=== PATIENT | male | born 1960 | race Caucasian/White ===

== ENCOUNTER 2018-07-01 07:25 | Emergency (ER) | payer BC ==
[2018-07-01 07:36] VITALS: BP 186/97
--- NOTE | 2018-07-01 07:54 | UC ---
Abdominal Pain Male HPI - HPI Summary HPI Summary: The patient is a 58-year-old male with the onset of right flank pain about 4 AM. Pain is been waxing and waning. At its worst it was a 7 out of 10. It currently is 3-4 out of 10. He had some diaphoresis when the pain was at its worst. Eyes any nausea or vomiting or diarrhea. He denies any fever or chills. He has never had any history of kidney stones. He denies any UTI symptoms. He denies any chest pain or shortness of breath. - History of Current Complaint Chief Complaint: UCAbdominalPain Stated Complaint: ABD PAIN Time Seen by Provider: 07/01/18 07:43 Hx Obtained From: Patient Onset/Duration: Sudden Onset, Lasting Hours Timing: Constant Severity Initially: Moderate Severity Currently: Mild Pain Intensity: 4 Pain Scale Used: 0-10 Numeric Location: Other - right flank Radiates: No Aggravating Factor(s): Nothing Alleviating Factor(s): Nothing Associated Signs And Symptoms: Positive: Diaphoresis. 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 - Family History Known Family History: Positive: Hypertension - Social History Alcohol Use: None Substance Use Type: None Smoking Status (MU): Current Every Day Smoker Amount Used/How Often: 1/2 ppd Household Exposure Type: Cigarettes Review of Systems All Other Systems Reviewed And Are Negative: Yes Constitutional: Positive: Negative Skin: Positive: Negative Eyes: Positive: Negative ENT: Positive: Negative Respiratory: Positive: Negative Cardiovascular: Positive: Negative Gastrointestinal: Positive: Abdominal Pain - Right flank Genitourinary: Positive: Negative Motor: Positive: Negative Neurovascular: Positive: Negative Musculoskeletal: Positive: Negative Neurological: Positive: Negative Psychological: Positive: Negative Physical Exam Triage Information Reviewed: Yes Appearance: Well-Appearing, No Pain Distress, Well-Nourished Vital Signs: Initial Vital Signs Temp 96.8 F 07/01/18 07:30 Pulse 77 07/01/18 07:30 Resp 18 07/01/18 07:30 BP 186/97 07/01/18 07:30 Pulse Ox 96 07/01/18 07:30 Vital Signs Reviewed: Yes Eyes: Positive: Conjunctiva Clear ENT: Positive: Hearing grossly normal. Negative: Nasal congestion, Nasal drainage, Trismus, Muffled voice, Hoarse voice Neck: Positive: Supple, Nontender Respiratory: Positive: Lungs clear, Normal breath sounds, No respiratory distress, No accessory muscle use Cardiovascular: Positive: RRR, No Murmur. Negative: Tachycardia, Bradycardia Abdomen Description: Positive: Nontender, No Organomegaly, Soft, CVA Tenderness (R) - mild. Negative: Bruit, Distended, Guarding, Hernia @, Hepatomegaly, McBurney's Point Tenderness, Peritoneal Signs, Pulsatile Mass, Splenomegaly Bowel Sounds: Positive: Present Musculoskeletal: Positive: ROM Intact, No Edema Neurological: Positive: Alert Psychological Exam: Normal Skin Exam: Normal Diagnostics - Radiology No standard instances Radiology Interpretation Completed By: Radiologist Summary of Radiographic Findings: CT abd/pelvis-1. PUNCTATE CALCULUS OF THE RIGHT UVJ WITHOUT HYDRONEPHROSIS. 2. 3.4 CM INFRARENAL ABDOMINAL AORTIC ANEURYSM. 3. ATHEROSCLEROSIS. 4. LEFT ADRENAL NODULE, MOST CONSISTENT WITH AN ADRENAL ADENOMA. 5. FAT-CONTAINING UMBILICAL HERNIAS BILATERALL Abd Pain Male Course/Dx - Differential Dx/Clinical Impression Provider Diagnosis: Kidney stone, Abdominal aortic aneurysm (AAA) 30 to 34 mm in diameter, Adenoma of left adrenal gland, Cigarette smoker Discharge - Sign-Out/Discharge Documenting (check all that apply): Patient Departure All imaging exams completed and their final reports reviewed: Yes - Discharge Plan Condition: Stable Disposition: HOME Prescriptions: Ondansetron TAB* [Zofran Tab*] 4 mg PO Q6H PRN #10 tab PRN Reason: Nausea Tamsulosin CAP* [Flomax CAP*] 0.4 mg PO BEDTIME #7 cap traMADol TAB* [Ultram*] 50 mg PO Q6HR PRN #28 tab MDD 4 PRN Reason: Pain Patient Education Materials: Kidney Stones (ED) Referrals: Lizette Lott MD [Primary Care Provider] - 4 Days Vinicio Nguyễn MD [Medical Doctor] - 5 Days (if stone not passed) Additional Instructions: drink 8-12 glasses of water/day TO ER for increased pain fever vomitng tylenol YOU NEED TO STOP SMOKING There were some incidental findings on your CT that need to be addresses you have a small aortic aneurysm that needs to be follow you have what looks like a benign adenoma on your left adrenal gland on the kidney BP needs to be control addressed - Billing Disposition and Condition Condition: STABLE Disposition: Home
[2018-07-01] MEDS ORDERED: Acetaminophen TAB* 325 MG PO ONE (08:42)
[2018-07-01] MEDS ORDERED: traMADol TAB* 50 MG PO ONE (08:42)
== END 2018-07-01 09:00 | disposition home or self-care (01) ==
LOC: UCEAST 07:25
DX: N20.1 Calculus of ureter (principal); I71.4 Abdominal aortic aneurysm, without rupture; I70.0 Atherosclerosis of aorta; E27.9 Disorder of adrenal gland, unspecified; K42.9 Umbilical hernia without obstruction or gangrene; Z88.5 Allergy status to narcotic agent; F17.200 Nicotine dependence, unspecified, uncomplicated
CPT/HCPCS: 74176; 81003; 99212; A9270-GY; G0463

== ENCOUNTER 2018-12-20 10:17 | Emergency (ER) | payer BC ==
--- OUTSIDE RECORDS SUMMARY | 2018-12-20 10:23 | XMS REPORT | Continuity of Care Document ---
:1960 External Reference #:[id number] Author Name Lizette Lott M.D. 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 Onset: 09/15/2018 Solitary nodule of lung Marcos Martell M.D. Onset: 07/07/2018 Symptom of skin and integumentary tissue Marcos Martell M.D. Onset: 2018 Substance abuse counseling Marcos Martell M.D. Onset: 07/07/2018 Kidney stone Marcos Martell M.D. Onset: 07/07/2018 Benign neoplasm of adrenal gland Marcos Martell M.D. Onset: 07/07/2018 Essential hypertension Marcos Martell M.D. Onset: 07/07/2018 Abdominal aortic aneurysm without rupture Marcos Martell M.D. Onset: 07/07 Carotid artery occlusion Lizette Lott M.D. Onset: 01/12/2018 Type 2 diabetes mellitus Lizette Lott M.D. Onset: 01/12/2018 Family History Date Family Member(s) Observation Comments Children 2 boys. healthy. 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 [employer] Tobacco Use Start: Unknown Patient is a current 1 p-pd. x 40 years. cigarette smoker, Started smoking 44 smokes every day years ago. Now less than 1/2 pack per day. xs. Smoking Status Reviewed: 04/14/18 Patient is a current 1 p-pd. x 40 years. cigarette smoker, Started smoking 44 smokes every day years ago. Now less than 1/2 pack per day. xs. ETOH Use Never used alcohol Exercise Exercises sporadically fishing. hunting. Type/Frequency Allergies, Adverse Reactions, Alerts Active Allergies Reaction Severity Comments Date Oxycodone nightmares, nausea 10/17/2015 Varenicline nightmares 09/17/2017 Inactive Allergies NKDA 09/25/2015 Medications Active Medications SIG Qnty Indications Ordering Provider Date Lisinopril 1 by mouth 30tabs I10 Lizette Acevedo 09/15/2018 10mg Tablets every day Arnold Lott Roland Contour Blood test 6 times a 200units Lizette Acevedo 08/15/2018 Glucose Test Strips day dx: e11.9 Arnold Lott last office Strips visit 05/25/18 Amlodipine Besylate 1 by mouth 90tabs Lizette Acevedo 07/07/2018 every day Arnold Lott 2.5mg Tablets Vitamin D3 1 by mouth 12caps E55.9 Lizette Acevedo 01/12/2018 [id number] every week x 12 Arnold Lott Capsules wks Atorvastatin Calcium take one tablet 90tabs Roland Cedillo 08/22/2017 by mouth once MD Colby 80mg Tablets daily Metformin HCL 1 by mouth 270tabs E11.9 Lizette Acevedo 05/21/2017 500mg three times Arnold Lott Tablets Lancets Ultra Thin check blood 100units E11.9 Lizette Acevedo 03/18/2017 30G sugar twice a Arnold Lott Thin 30G Misc day dx: e11.9 Clopidogrel Bisulfate take one tablet 90tabs Roland Cedillo 04/27/2016 by mouth once MD Colby 75mg Tablets daily Aspirin 1 by mouth once 90tabs Lizette Acevedo 10/17/2015 325mg Tablets a day Arnold Lott History Medications Cheratussin ac 5-10 milliliters 100ml R05 Lizette Acevedo 04/14/2018 - by mouth at night Arnold Lott 08/10/2018 100-10mg/5ML for cough Solution Cheratussin ac 5-10 milliliters 100ml J20.9 Lizette Acevedo 03/18/2017 - by mouth at night Arnold Lott 05/21/2017 100-10mg/5ML for cough Solution Azithromycin 2 by mouth today. 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 AGENT 02/15/2016 Tablets Proair HFA 2 puffs every 4 25.5gm J20.9 Lizette Acevedo 02/10/2016 - hours as needed Arnold Lott 09/15/2018 108(90Base) mcg/Act Aerosol Diazepam 1-2 by mouth every 30tabs G47.00 Lizette Acevedo 12/03/2015 - 5mg night at bedtime Arnold Lott 09/15/2018 Tablets as needed insomnia Lipitor 1 by mouth every 90tabs Roland Dumont 10/17/2015 - 80mg day Arnold Wallace 08/22/2017 Tablets Plavix 1 by mouth every 90tabs Lizette Acevedo 10/17/2015 - 75mg Tablets day Arnold Lott 04/27/2016 No Active Unknown 09/25/2015 - Medications 10/17/2015 Immunizations CPT Code Status Date Vaccine Lot # [id number] Given 04/14/2018 Pneumococcal Conjugate Vacc-13 [id number] Given 03/15/2018 Influenza Vac, Quadrivalent, Slit Virus, Im [id number] Given 03/18/2017 Influenza Vac, Quadrivalent, Slit Virus, Im [id number] Given 03/19/2016 Influenza Vac, Quadrivalent, Slit Virus, Im Vital Signs Date Vital Result Comment 12/16/2018 3:10pm BP Systolic 138 mmHg BP Diastolic 74 mmHg Heart Rate 82 /min Body Temperature 97.7 F Respiratory Rate 20 /min Weight 208.00 lb 09/15/2018 5:28pm BP Systolic 168 mmHg BP Diastolic 92 mmHg BP Systolic Recheck 200 mmHg BP Diastolic Recheck 100 mmHg Heart Rate 84 /min Body Temperature 97.9 F Height 69.5 inches 5'9.50" Weight 216.00 lb BMI (Body Mass Index) 31.4 kg/m2 08/10/2018 3:10pm BP Systolic 138 mmHg BP Diastolic 68 mmHg Heart Rate 84 /min Body Temperature 97.8 F Respiratory Rate 17 /min Height 69.5 inches 5'9.50" Weight 218.00 lb BMI (Body Mass Index) 31.7 kg/m2 07/07/2018 8:29am BP Systolic 142 mmHg BP Diastolic 76 mmHg Heart Rate 74 /min Body Temperature 97.9 F Respiratory Rate 16 /min Height 69.5 inches 5'9.50" Weight 219.00 lb BMI (Body Mass Index) 31.9 kg/m2 04/14/2018 5:27pm BP Systolic 110 mmHg BP Diastolic 60 mmHg Heart Rate 72 /min Body Temperature 98.8 F Respiratory Rate 16 /min Height 69.5 inches 5'9.50" Weight 218.00 lb BMI (Body Mass Index) 31.7 kg/m2 01/12/2018 3:49pm BP Systolic 140 mmHg BP Diastolic 72 mmHg Heart Rate 66 /min Body Temperature 97.8 F Respiratory Rate 16 /min 09/17/2017 4:03pm BP Systolic 136 mmHg BP Diastolic 80 mmHg Heart Rate 60 /min Body Temperature 97.7 F Respiratory Rate 16 /min Height 69.5 inches 5'9.50" Weight 217.38 lb BMI (Body Mass Index) 31.6 kg/m2 05/21/2017 2:23pm BP Systolic 140 mmHg BP Diastolic 80 mmHg Heart Rate 76 /min Body Temperature 97.4 F Respiratory Rate 16 /min Height 69.5 inches 5'9.50" Weight 213.25 lb BMI (Body Mass Index) 31.0 kg/m2 03/18/2017 3:51pm BP Systolic 120 mmHg BP Diastolic 80 mmHg Heart Rate 64 /min Body Temperature 98.1 F Respiratory Rate 18 /min Height 69.5 inches 5'9.50" Weight 223.00 lb BMI (Body Mass Index) 32.5 kg/m2 01/21/2017 3:55pm BP Systolic 128 mmHg BP Diastolic 70 mmHg Heart Rate 76 /min Body Temperature 98.1 F Respiratory Rate 18 /min Height 69.5 inches 5'9.50" Weight 224.00 lb BMI (Body Mass Index) 32.6 kg/m2 02/10/2016 11:17am BP Systolic 154 mmHg BP Diastolic 90 mmHg Heart Rate 80 /min Body Temperature 98.3 F Respiratory Rate 16 /min O2 % BldC Oximetry 94 % Height 69.5 inches 5'9.50" Weight 221.00 lb BMI (Body Mass Index) 32.2 kg/m2 12/03/2015 3:19pm BP Systolic 160 mmHg BP Diastolic 84 mmHg Heart Rate 80 /min Body Temperature 98.1 F Respiratory Rate 16 /min Height 69.5 inches 5'9.50" Weight 219.00 lb BMI (Body Mass Index) 31.9 kg/m2 10/17/2015 10:56am BP Systolic 150 mmHg BP Diastolic 90 mmHg Heart Rate 66 /min Body Temperature 97.8 F Respiratory Rate 18 /min Height 69.5 inches 5'9.50" Weight 221.00 lb BMI (Body Mass Index) 32.2 kg/m2 09/25/2015 10:38am BP Systolic 134 mmHg BP Diastolic 80 mmHg Heart Rate 68 /min Body Temperature 98.0 F Respiratory Rate 18 /min Height 69.5 inches 5'9.50" Weight 226.00 lb BMI (Body Mass Index) 32.9 kg/m2 Results Test Date Facility Test Result H/L Range Note Laboratory test 12/16/2018 [facility] <pending> Negative finding (607)- - Basic Metabolic 09/29/2018 [facility]) Sodium 142 mEq/L 134-149 Profile Potassium 4.1 mEq/L 3.6-5.5 Chloride 103 mEq/L 94-112 Carbon Dioxide 25 mEq/L 21-32 Glucose 179 mg/dL High 70-105 BUN 9 mg/dL 6-26 Creatinine 0.8 mg/dL 0.6-1.4 BUN/Creat Ratio 11.3 CALC 8.0-36.0 Calcium 9.4 mg/dL 8.6-10.2 GFR Non- >60 ml/min/1.73m^ >=60 GFR >60 ml/min/1.73m^ >=60 Laboratory test 09/15/2018 [facility] Hemoglobin A1c 7.4 % High 4.1- 5.7 finding (607)- - (Fma) Laboratory test 08/11/2018 [facility] [place] SEE RESULT 1 finding Pathology BELOW Laboratory test 08/11/2018 [facility] [place] of Care 160 mg/dL High 70-100 2 finding Glucose Comprehensive 07/07/2018 [facility]) Sodium 139 mEq/L 134-149 Metabolic Prof Potassium 4.1 mEq/L 3.6-5.5 Chloride 103 mEq/L 94-112 Carbon Dioxide 28 mEq/L 21-32 Glucose 115 mg/dL High 70-105 BUN 6 mg/dL 6-26 Creatinine 0.7 mg/dL 0.6-1.4 BUN/Creat Ratio 8.6 CALC 8.0-36.0 Calcium 9.6 mg/dL 8.6-10.2 Total Protein 7.1 g/dL 6.4-8.3 Albumin 4.7 g/dL 3.8-5.5 Globulin 2.4 g/dL 2.0-4.8 A/G Ratio 2.0 CALC 0.6-2.3 Alk. Phosphatase 107 U/L High 22-95 Alt (SGPT) 25 U/L 7-35 Ast (Sgot) 14 U/L 5-34 Total Bilirubin 0.4 mg/dL 0.2-1.3 GFR Non- >60 ml/min/1.73m^ >=60 GFR >60 ml/min/1.73m^ >=60 Lipid Profile 07/07/2018 [facility](a) Cholesterol 153 mg/dL 120- 200 Triglycerides 277 mg/dL High 30-200 HDL Cholesterol 43 mg/dL 30-70 LDL (Calculated) 55 CALC 0-129 VLDL Cholesterol 55 mg/dL High 0-50 HDL Risk Factor 3.6 CALC 0.0-4.4 Laboratory test 07/07/2018 [facility](a) Free T4 0.91 ng/dL 0.75- 1.54 finding TSH 4.75 mIU/L 0.50-6.00 CBC Electronic Fma 07/07/2018 [facility](a) WBC 9.3 x10^3/UL 4.0- 10.0 RBC 5.26 x10^6/UL 3.93-6.00 HGB 15.2 g/dL 12.0-17.0 HCT 46 % 35-50 MCV 87.5 fL 80.0-95.0 MCH 28.9 pg 25.6-32.2 MCHC 33.0 g/dL 32.2-36.0 RDW-CV 13.3 % 11.6-14.4 PLT 261 x10^3/UL 163-400 MPV 10.7 fL 9.4-12.4 Jeremie# 6.33 x10^3/UL High 1.56-6.13 Lymph# 1.91 x10^3/UL 1.18-3.74 [place]# 0.86 x10^3/UL High 0.24-0.82 Eos # 0.1 x10^3/UL 0.0-0.5 Baso # 0.07 x10^3/UL 0.01-0.08 Jeremie% 67.8 % 34.0-70.0 Lymph % 20.5 % 20.0-52.0 [place]% 9.2 % 5.0-12.0 Eos% 1.3 % 0.7-7.0 Baso% 0.8 % 0.1-1.2 Laboratory test 07/07/2018 [facility](a) LDL, Direct 69 mg/dL 0- 130 finding Laboratory test 07/07/2018 [facility] Hemoglobin A1c 7.6 % High 4.1- 5.7 finding (607)- - (a) Metanephrines 07/07/2018 [facility] [place] Plasma Free 0.53 <0.90 Plasma Normetanephrine nmol/L Plasma Free Metanephrine <0.20 nmol/L <0.50 3 Poc Urinalysis 07/01/2018 [facility] [place] Poc Glucose, Urine Trace Abnormal Negative Poc Bilirubin, Urine 1+ Abnormal Negative Poc Ketone, Urine Negative Negative Poc Specific [place], Urine >=1.030 N 1.010-1.030 Poc Blood, Urine 3+ Abnormal Negative Poc pH, Urine 5.5 N 5-9 Poc Protein, Urine 2+ Abnormal Negative Poc Urobilinogen, Urine 0.2 Negative Poc Nitrite, Urine Negative Negative Poc Leukocytes, Urine Negative Negative Poc Color, Urine Mimi Poc Clarity, Urine Slightly Cloudy 4 Laboratory test finding 04/14/2018 [facility]) PSA 1.0 ng/mL 0.0 -4.0 Laboratory test finding 04/02/2018 [facility](a) CK 62 U/L 38-174 5 TSH 4.65 mIU/L 0.50-6.00 Vitamin D25 31 30-100 Comprehensive Metabolic 04/02/2018 [facility]) Sodium 143 mEq/L 134-149 Prof Potassium 4.7 mEq/L 3.6-5.5 Chloride 101 mEq/L 94-112 Carbon Dioxide 24 mEq/L 21-32 Glucose 151 mg/dL High 70-105 BUN 10 mg/dL 6-26 Creatinine 0.8 mg/dL 0.6-1.4 BUN/Creat Ratio 12.5 CALC 8.0-36.0 Calcium 9.6 mg/dL 8.6-10.2 Total Protein 6.6 g/dL 6.4-8.3 Albumin 4.6 g/dL 3.8-5.5 Globulin 2.0 g/dL 2.0-4.8 A/G Ratio 2.3 CALC 0.6-2.3 Alk. Phosphatase 107 U/L High 22-95 Alt (SGPT) 22 U/L 7-35 Ast (Sgot) 11 U/L 5-34 Total Bilirubin 0.3 mg/dL 0.2-1.3 GFR Non- >60 ml/min/1.73m^ >=60 GFR >60 ml/min/1.73m^ >=60 Lipid Profile 04/02/2018 [facility](a) Cholesterol 135 mg/dL 120- 200 Triglycerides 243 mg/dL High 30-200 HDL Cholesterol 38 mg/dL 30-70 LDL (Calculated) 48 CALC 0-129 VLDL Cholesterol 49 mg/dL 0-50 HDL Risk Factor 3.6 CALC 0.0-4.4 Laboratory test 04/02/2018 [facility] Hemoglobin A1c 6.7% % High 4.1 -5.7 finding (607)- - (a) CBC Electronic 04/02/2018 [facility] Medicine WBC 9.41 4.0-10.0 (a New) (607)- - RBC 5.09 3.93-6.0 Hemoglobin (Fma/CMC/CTX) 14.9 g/dL 12.0-17.0 Hematocrit (Fma/CMC/CTX) 44.6 % 35.0-50.0 Mean Corpuscular Vol 87.6 fL 80-95 Mean Corpuscular Hemoglobin 29.3 pg 25.6-32.2 Mean Corpuscular Hemo Concen 33.4 g/dL 32.2-36.0 Platelets 230 10^3/ul 163-400 RDW-CV 13.0 11.6-14.4 Mean Platelet Volume 10.4 fL 8.0-12.4 Absolute Neutrophils BLD 6.57 High 1.56-6.13 Absolute Lymphocytes 1.70 1.18-3.74 Absolute Monocytes BLD Auto 0.92 High 0.24-0.82 Absolute Eos Blood 0.11 0.04-0.54 Absolute Basophils 0.06 0.01-0.08 Neutrophil % 69.8 % 34.0-70.0 Lymph% 18.1 % Low 20.0-52.0 Monocytes % 9.8 % 5.0-12.0 Eos % 1.2 % 0.7-7.0 Basophil% 0.6 % 0-1.2 Laboratory test 12/18/2017 [facility]) Vitamin D25 11 Low 30-100 finding Comprehensive 12/18/2017 [facility](a) Sodium 137 mEq/L 134-149 Metabolic Prof Potassium 4.6 mEq/L 3.6-5.5 Chloride 106 mEq/L 94-112 Carbon Dioxide 23 mEq/L 21-32 Glucose 154 mg/dL High 70-105 BUN 11 mg/dL 6-26 Creatinine 0.7 mg/dL 0.6-1.4 BUN/Creat Ratio 15.7 CALC 8.0-36.0 Calcium 9.5 mg/dL 8.6-10.2 Total Protein 6.4 g/dL 6.4-8.3 Albumin 4.4 g/dL 3.8-5.5 Globulin 2.0 g/dL 2.0-4.8 A/G Ratio 2.2 CALC 0.6-2.3 Alk. Phosphatase 112 U/L High 22-95 Alt (SGPT) 25 U/L 7-35 Ast (Sgot) 14 U/L 5-34 Total Bilirubin 0.3 mg/dL 0.2-1.3 GFR Non- >60 ml/min/1.73m^ >=60 GFR >60 ml/min/1.73m^ >=60 Lipid Profile 12/18/2017 [facility]) Cholesterol 125 mg/dL 120- 200 Triglycerides 263 mg/dL High 30-200 HDL Cholesterol 39 mg/dL 30-70 LDL (Calculated) 33 CALC 0-129 VLDL Cholesterol 53 mg/dL High 0-50 HDL Risk Factor 3.2 CALC 0.0-4.4 Laboratory test 12/18/2017 [facility](a) LDL, Direct 54 mg/dL 0- 130 finding CBC Electronic ([facility] 12/18/2017 [facility] Medicine WBC 10.06 High 4.0-10.0 New) (607)- - RBC 4.98 3.93-6.0 Hemoglobin (Fma/CMC/CTX) 14.7 g/dL 12.0-17.0 Hematocrit (Fma/CMC/CTX) 43.5 % 35.0-50.0 Mean Corpuscular Vol 87.3 fL 80-95 Mean Corpuscular Hemoglobin 29.5 pg 25.6-32.2 Mean Corpuscular Hemo Concen 33.8 g/dL 32.2-36.0 Platelets 243 10^3/ul 163-400 RDW-CV 13.8 11.6-14.4 Mean Platelet Volume 10.2 fL 8.0-12.4 Absolute Neutrophils BLD 7.04 High 1.56-6.13 Absolute Lymphocytes 1.90 1.18-3.74 Absolute Monocytes BLD Auto 0.87 High 0.24-0.82 Absolute Eos Blood 0.10 0.04-0.54 Absolute Basophils 0.08 0.01-0.08 Neutrophil % 70.0 % 34.0-70.0 Lymph% 18.9 % Low 20.0-52.0 Monocytes % 8.6 % 5.0-12.0 Eos % 1.0 % 0.7-7.0 Basophil% 0.8 % 0-1.2 Laboratory test 12/18/2017 [facility] Hemoglobin A1c 7.1 % % High 4.1-5.7 finding (607)- - (a) Laboratory test 08/27/2017 [facility] Hemoglobin A1c 7.5 % % High 4.1-5.7 finding (607)- - (a) Laboratory test 05/21/2017 [facility] Hemoglobin A1c 7.2 % High 4.1- 5.7 finding (607)- - (a) Laboratory test 03/19/2017 [facility] Hemoglobin A1c 8.1 % High 4.1- 5.7 finding (607)- - (a) Laboratory test 03/18/2017 [facility] [place] SEE RESULT 6 finding Interface Order BELOW Lipid Profile 01/23/2017 [facility]) Cholesterol 159 mg/dL 120- 200 Triglycerides 259 mg/dL High 30-200 HDL Cholesterol 38 mg/dL 30-70 LDL (Calculated) 69 CALC 0-129 VLDL Cholesterol 52 mg/dL High 0-50 HDL Risk Factor 4.2 CALC 0.0-4.4 Laboratory test finding 01/23/2017 [facility]) TSH 4.05 mIU/L 0.50-6.00 Complete Blood Count 01/23/2017 [facility]) WBC 8.9 x10^3/UL 3.6 -9.6 RBC 5.34 x10^6/UL 3.90-5.70 HGB 16.4 g/dL 12.1-17.2 HCT 46 % 36-50 MCV 87.0 fL 82.2-97.4 MCH 30.6 pg 27.6-33.3 MCHC 35.3 g/dL 33.0-35.5 RDW 13.8 % High 11.6-13.7 PLT 229 x10^3/UL 150-400 MPV 7.5 fL 7.4-10.4 Gran # 6.9 x10^3/UL 1.5-7.2 Lymph# 1.6 x10^3/UL 0.7-4.9 [place]# 0.4 x10^3/UL 0.1-0.9 Gran % 76.2 % High 42.2-75.2 Lymph % 18.9 % Low 20.5-51.1 [place]% 4.9 % 1.7-9.3 Comprehensive Metabolic 01/23/2017 [facility](a) Sodium 140 mEq/L 134-149 Prof Potassium 4.7 mEq/L 3.6-5.5 Chloride 105 mEq/L 94-112 Carbon Dioxide 23 mEq/L 21-32 Glucose 211 mg/dL High 70-105 7 BUN 12 mg/dL 6-26 Creatinine 0.8 mg/dL 0.6-1.4 BUN/Creat Ratio 15.0 CALC 8.0-36.0 Calcium 9.4 mg/dL 8.6-10.2 Total Protein 6.6 g/dL 6.4-8.3 Albumin 4.2 g/dL 3.8-5.5 Globulin 2.4 g/dL 2.0-4.8 A/G Ratio 1.8 CALC 0.6-2.3 Alk. Phosphatase 124 U/L High 22-95 8 Alt (SGPT) 30 U/L 7-35 Ast (Sgot) 17 U/L 5-34 Total Bilirubin 0.4 mg/dL 0.2-1.3 GFR Non- >60 ml/min/1.73m^ >=60 GFR >60 ml/min/1.73m^ >=60 Laboratory test finding 01/23/2017 [facility](a) Vitamin D25 14 Low 30-100 LDL, Direct 74 mg/dL 0-130 PSA Free:Total 01/23/2017 [facility] Prostate 1.2 ng/mL 0.0-4.0 9, 10 Ratio (No Serial) [address] [place] [address] Serum (607)- - PSA, Free 0.28 ng/mL N/A 11 % Free PSA 23.3 % 12 Complete Blood Count 01/28/2016 [facility]) WBC 8.9 x10^3/UL 3.6 -9.6 RBC 5.14 x10^6/UL 3.90-5.70 HGB 15.2 g/dL 12.1-17.2 HCT 44 % 36-50 MCV 86.0 fL 82.2-97.4 MCH 29.6 pg 27.6-33.3 MCHC 34.2 g/dL 33.0-35.5 RDW 13.8 % High 11.6-13.7 PLT 245 x10^3/UL 150-400 MPV 7.4 fL 7.4-10.4 Gran # 6.2 x10^3/UL 1.5-7.2 Lymph# 2.2 x10^3/UL 0.7-4.9 [place]# 0.5 x10^3/UL 0.1-0.9 Gran % 68.6 % 42.2-75.2 Lymph % 25.6 % 20.5-51.1 [place]% 5.8 % 1.7-9.3 Laboratory test 01/28/2016 [facility]) Free T4 0.82 ng/dL 0.75- 1.54 finding TSH 4.27 mIU/L 0.50-6.00 Basic Metabolic Profile 01/28/2016 [facility]) Sodium 141 mEq/L 134-149 Potassium 4.5 mEq/L 3.6-5.5 Chloride 103 mEq/L 94-112 Carbon Dioxide 24 mEq/L 21-32 Glucose 155 mg/dL High 70-105 13 BUN 9 mg/dL 6-26 Creatinine 0.8 mg/dL 0.6-1.4 BUN/Creat Ratio 11.3 CALC 8.0-36.0 Calcium 10.2 mg/dL 8.6-10.2 GFR Non- >60 ml/min/1.73m^ >=60 GFR >60 ml/min/1.73m^ >=60 Laboratory test finding 09/24/2015 [facility] [place] Lactic Acid 1.0 mmol/L N 0.5-2.0 14 CBC Auto Diff 09/24/2015 [facility] [place] White Blood Count 8.1 10^3/uL N 3.5-10.8 Red Blood Count 5.43 10^6/uL High 4.0-5.4 Hemoglobin 15.8 g/dL N 14.0-18.0 Hematocrit 47 % N 42-52 Mean Corpuscular Volume 86 fL N 80-94 Mean Corpuscular Hemoglobin 29 pg N 27-31 Mean Corpuscular HGB Conc 34 g/dL N 31-36 Red Cell Distribution Width 14 % N 10.5-15 Platelet Count 242 10^3/uL N 150-450 Mean Platelet Volume 8 um3 N 7.4-10.4 Abs Neutrophils 5.3 10^3/uL N 1.5-7.7 Abs Lymphocytes 1.7 10^3/uL N 1.0-4.8 Abs Monocytes 0.9 10^3/uL High 0-0.8 Abs Eosinophils 0.2 10^3/uL N 0-0.6 Abs Basophils 0.1 10^3/uL N 0-0.2 Abs Nucleated RBC 0.01 10^3/uL N Granulocyte % 64.6 % N 38-83 Lymphocyte % 20.7 % Low 25-47 Monocyte % 11.2 % High 1-9 Eosinophil % 2.1 % N 0-6 Basophil % 1.4 % N 0-2 Nucleated Red Blood Cells % 0.2 N Laboratory test 09/24/2015 [facility] [place] Free T4 (Free 0.75 ng/dL N 0.61-1.12 finding Thyroxine) Lipid Profile 09/24/2015 [facility] [place] Triglycerides 244 mg/dL N 15 (Trig/Chol/HDL) Cholesterol 225 mg/dL N 16 HDL Cholesterol 39.7 mg/dL N 17 LDL Cholesterol 137 mg/dL N 18 Laboratory test finding 09/24/2015 [facility] [place] Magnesium 2.0 mg/dL N 1.9-2.7 Troponin I 0.01 ng/mL N <0.03 19 TSH (Thyroid Stim Horm) 4.31 ?IU/mL N 0.34-5.60 Comp Metabolic Panel 09/24/2015 [facility] [place] Sodium 136 mmol/L N 133-145 Potassium 3.9 mmol/L N 3.5-5.0 Chloride 104 mmol/L N 101-111 Co2 Carbon Dioxide 24 mmol/L N 22-32 Anion Gap 8 mmol/L N 2-11 Glucose 104 mg/dL High 70-100 Blood Urea Nitrogen 10 mg/dL N 6-24 Creatinine 0.83 mg/dL N 0.67-1.17 BUN/Creatinine Ratio 12.0 N 8-20 Calcium 9.6 mg/dL N 8.6-10.3 Total Protein 6.9 g/dL N 6.4-8.9 Albumin 4.3 g/dL N 3.2-5.2 Globulin 2.6 g/dL N 2-4 Albumin/Globulin Ratio 1.7 N 1-3 Total Bilirubin 0.40 mg/dL N 0.2-1.0 Alkaline Phosphatase 85 U/L N 34-104 Alt 24 U/L N 7-52 Ast 17 U/L N 13-39 Egfr Non- 95.5 N >60 Egfr 122.8 N >60 20 1 SEE RESULT BELOW Name: LEXIE NASSAR : [address]: Lexie Velez MD Acct: [id number] Unit: [id number] AGE: 58 Location: [place] Re08/11/18 SEX: M [place] [facility] [place]: [id number] ASHISH: 08/11/[address] [facility] [address]: Lexie Velez MD REQ: [id number] RECD: 08/11/18 STATUS: CHELSEA BEDOYA DR: Vinnie Lott MD _ ORDERED: FS 1ST PER SPEC, FS ADD PER SPEC, LEVEL 4 FINAL DIAGNOSIS Skin, left nasal tip, excision: -- Invasive squamous cell carcinoma, well differentiated. -- All margins are clear. COMMENT: The previous lesion at this site ([id number]) has been completely excised. PATHOLOGY SURGICAL CONSULT Frozen section (FS)/Touch Prep (TP)/Gross Consult (GC) FS) Skin, left nasal tip, excision: a. Squamous cell carcinoma. (EP) b. All margins are clear. (EP) Findings discussed with Dr. Velez on 08/11/2018 at 1130. PRE-OPERATIVE DIAGNOSIS Squamous cell carcinoma left nasal tip; suture sabillon 12:00 superior margin CONTINUED ON NEXT PAGE DEPARTMENT OF PATHOLOGY, [address] [place] [address] Charli Hall M.D. Director [facility] # [id number] RUN DATE: 08/12/18 [facility] LAB LIVE PAGE 2 Patient: LEXIE NASSAR [id number] (Continued) GROSS DESCRIPTION (Continued) GROSS DESCRIPTION The specimen is received fresh labeled, Excision Squamous Cell Carcinoma Left Nasal Tip, Suture Sabillon 12:00 Superior Margin, and consists of a 1.2 x 1.1 cm leigh-pink ovoid portion of skin excised to a depth of 0.3 cm with a central 0.5 x 0.4 cm legih-red ulceration. There is a suture attached to one long axis which designates the 12:00 superior margin. The specimen is inked as follows: 9:00 half black, 3:00 half blue and 12:00 end green, serially sectioned from 12:00 to 6:00 and entirely submitted for frozen section microscopy. The frozen section residue is submitted in cassettes FSA and FSB to include ends in cassette FSA. Signed by and Reported on: Alana Aragon MD 08/12/18 1143 END OF REPORT DEPARTMENT OF PATHOLOGY, [address] [place] [address] Charli Hall M.D. Director [facility] # [id number] 2 Cut Order Hand: [id number] ADDITIONAL INFORMATION This test was developed and its performance characteristics determined by [facility] in a manner consistent with CLIA requirements. This test has not been cleared or approved by the [place]. Food and Drug Administration. Test Performed by: [address] [id number] 4 Cut Order Hand: [id number] 5 FASTING 6 SEE RESULT BELOW Name: LEXIE NASSAR : [address]: Maricruz Barrera MD Acct: [id number] Unit: [id number] AGE: 57 Location: ENDO Re03/18/17 SEX: M Status: DEP REF SPEC: [id number] ASHISH: 03/18/[address] [facility] [address]: Maricruz Barrera MD REQ: [id number] RECD: 03/18/17 STATUS: CHELSEA BEDOYA DR: Lizette Lott MD _ ORDERED: LEVEL 4/6 FINAL DIAGNOSIS 1. Colon, cecum, biopsy: -- Tubular adenoma. -- No high grade dysplasia or malignancy. 2. Colon, ascending, biopsy: -- Tubular adenoma (s). -- No high grade dysplasia or malignancy. 3. Colon, transverse, biopsy: -- Tubulovillous adenoma. -- No high grade dysplasia or malignancy identified. 4. Colon, descending, biopsy: -- Tubular adenoma (s). -- No high grade dysplasia or malignancy. 5. Colon, rectosigmoid, biopsy: -- Hyperplastic polyp. 6. Colon, rectum, biopsy: --Hyperplastic polyps. CLINICAL HISTORY No history given CONTINUED ON NEXT PAGE * ML=Testing performed at Main Lab DEPARTMENT OF PATHOLOGY, [address] [place] [address] Charli Hall M.D. Director [facility] # [id number] RUN DATE: 03/19/17 [facility] LAB LIVE PAGE 2 Patient: LEXIE NASSAR [id number] (Continued) POST-OPERATIVE DIAGNOSIS (Continued) POST-OPERATIVE DIAGNOSIS Multiple colonic polyps x14, status post cold and hot snares, diverticulosis , internal hemorrhoids. Conclusions/Plan: Await pathology GROSS DESCRIPTION 1. The specimen is received in formalin labeled, Cecal Polyp, and consists of two leigh-pink irregular soft tissue fragments measuring 0.2 x 0.1 x 0.1 cm and 0.5 x 0.2 x 0.2 cm which are submitted entirely in one cassette. 2. The specimen is received in formalin labeled, Ascending Colon Polyps, and consists of three leigh-pink polypoid soft tissue fragments ranging from 0.4 x 0.3 x 0.1 cm to 0.5 by up to 0.3 x 0.2 cm. The specimen is differentially inked, bisected and entirely submitted in one cassette. 3. The specimen is received in formalin labeled, Transverse Colon Polyp, and consists of a 0.8 x 0.6 by up to 0.3 cm aggregate of leigh-pink irregular to polypoid soft tissue fragments which is submitted entirely in one cassette. 4. The specimen is received in formalin labeled, Descending Colon Polyps, and consists of a 0.8 x 0.8 x 0.7 cm leigh-red polypoid soft tissue fragment. Received separately in the same container is a 0.9 x 0.7 x 0.2 cm aggregate of leigh-white irregular to polypoid soft tissue fragments. The largest fragment is inked, trisected and the specimen is entirely submitted in one cassette. 5. The specimen is received in formalin labeled, Rectosigmoid Polyp, and consists of a 1.1 x 0.6 by up to 0.3 cm aggregate of leigh-pink polypoid soft tissue fragments, the largest of which measures up to 0.6 cm admixed with leigh gelatinous material. The two largest fragments are inked, bisected and the specimen is submitted entirely in one cassette. 6. The specimen is received in formalin labeled, Rectal Polyps, and consists of three leigh-pink polypoid soft tissue fragments ranging from 0.2 x 0.2 x 0.2 cm to 0.5 x 0.3 x 0.2 cm. The largest fragment is inked, bisected and the specimen is entirely submitted in one cassette. Signed (signature on file) Charli Hall MD [id number] END OF REPORT * ML=Testing performed at Main Lab DEPARTMENT OF PATHOLOGY, [address] [place] [address] Charli Hall M.D. Director [facility] # [id number] RESULTS VERIFIED BY REPEAT ANALYSIS 8 RESULTS VERIFIED BY REPEAT ANALYSIS 9 FROZEN 10 Car ECLIA methodology. According to the [employer] [employer], Serum PSA should decrease and remain at undetectable levels after radical prostatectomy. The AUA defines biochemical recurrence as an initial PSA value 0.2 ng/mL or greater followed by a subsequent confirmatory PSA value 0.2 ng/mL or greater. Values obtained with different assay methods or kits cannot be used interchangeably. Results cannot be interpreted as absolute evidence of the presence or absence of malignant disease. 11 Car ECLIA methodology. 12 The table below lists the probability of prostate cancer for men with non-suspicious DHRUV results and total PSA between 4 and 10 ng/mL, by patient age (Saad et al, LUIS A 1998, 279:1542). % Free PSA 50-64 yr 65-75 yr 0.00-10.00% 56% 55% 10.01-15.00% 24% 35% 15.01-20.00% 17% 23% 20.01-25.00% 10% 20% >25.00% 5% 9% Please note: Saad et al did not make specific recommendations regarding the use of percent free PSA for any other population of men. 13 NON-FASTING 14 [facility] Severe Sepsis and Septic Shock Management Bundle Measure requires all lactic acids initially measuring >2.0mmol/L be repeated. 15 Desirable <150 Borderline high 150-199 High 200-499 Very High >500 16 Desirable <200 Borderline high 200-239 High >239 17 Low <40 Desirable: 40-60 High: >60 18 Desirable: <100 mg/dL Near Optimal: 100-129 mg/dL Borderline High: 130-159 mg/dL High: 160-189 mg/dL Very High: >189 mg/dL 19 Reference Range and Interpretation: TnI (ng/mL) Interpretation Less Than 0.03 ng/mL Not supportive of diagnosis of OR 0.03 - 0.50 ng/mL Indeterminate: suggest serial studies if clinically indicated. Greater than 0.5 ng/mL Consistent with diagnosis of OR 20 Because ethnic data is not always readily available, this report includes an eGFR for both -Americans and non- Americans. The National Kidney Disease Education Program (NKDEP) does not endorse the use of the MDRD equation for patients that are not between the ages of 18 and 70, are , have extremes of body size, muscle mass, or nutritional status, or are non- or non-. According to the National Kidney Foundation, irrespective of diagnosis, the stage of the disease is based on the level of kidney function: Stage Description GFR(mL/min/1.73 m(2)) 1 Kidney damage with normal or decreased GFR 90 2 Kidney damage with mild decrease in GFR 60-89 3 Moderate decrease in GFR 30-59 4 Severe decrease in GFR 15-29 5 Kidney failure <15 (or dialysis) Procedures Date Code Description Status 09/15/2018 51637 Finger Or Heel Stick Completed 06/15/2018 [id number] Colonoscopy Completed 08/27/2017 71668 Finger Or Heel Stick Completed 03/18/2017 [id number] Colonoscopy Completed 02/10/2016 79340 Pulse Oximetry Completed Encounters Type Date Location Provider Dx Diagnosis Office Visit 09/15/2018 Main Office Lizette Lott, E11.9 Type 2 diabetes 5:40p M.D. mellitus without complications R91.1 Solitary pulmonary nodule F17.210 Nicotine dependence, cigarettes, uncomplicated I10 Essential (primary) hypertension Office Visit 08/10/2018 3:10p Main Office Lizette Acevedo I10 Essential ( primary) Arnold Lott hypertension I71.4 Abdominal aortic aneurysm, without rupture D35.02 Benign neoplasm of left adrenal gland R91.1 Solitary pulmonary nodule R23.8 Other skin changes E11.9 Type 2 diabetes mellitus without complications F17.210 Nicotine dependence, cigarettes, uncomplicated Z71.6 Tobacco abuse counseling Office Visit 07/07/2018 8:20a Main Office Marcos Martell, I71.4 Abdominal aortic M.D. aneurysm, without rupture I10 Essential (primary) hypertension D35.02 Benign neoplasm of left adrenal gland N20.0 Calculus of kidney E11.9 Type 2 diabetes mellitus without complications R23.8 Other skin changes R91.1 Solitary pulmonary nodule E78.1 Pure hyperglyceridemia Z71.6 Tobacco abuse counseling Office Visit 04/14/2018 5:00p Main Office Lizette Acevedo Z00.01 Encounter for Arnold Lott general adult medical exam w abnormal findings E11.9 Type 2 diabetes mellitus without complications I65.29 Occlusion and stenosis of unspecified carotid artery E55.9 Vitamin D deficiency, unspecified R05 Cough Z23 Encounter for immunization Z12.5 Encounter for screening for malignant neoplasm of prostate F17.210 Nicotine dependence, cigarettes, uncomplicated Z12.11 Encounter for screening for malignant neoplasm of colon Z71.6 Tobacco abuse counseling Office Visit 01/12/2018 3:20p Main Office Lizette Acevedo E11.9 Type 2 diabetes Arnold Lott mellitus without complications I65.22 Occlusion and stenosis of left carotid artery E55.9 Vitamin D deficiency, unspecified F17.210 Nicotine dependence, cigarettes, uncomplicated Z71.6 Tobacco abuse counseling Office Visit 09/17/2017 3:20p [facility] Lizette Acevedo E11.9 Type 2 diabetes Arnold Lott mellitus without complications F17.210 Nicotine dependence, cigarettes, uncomplicated I65.29 Occlusion and stenosis of unspecified carotid artery Office Visit 05/21/2017 1:40p [facility] Lizette Acevedo E11.9 Type 2 diabetes Arnold Lott mellitus without complications F17.210 Nicotine dependence, cigarettes, uncomplicated Office Visit 03/18/2017 3:20p [facility] Lizette Acevedo Z23 Encounter for Arnold Lott immunization J20.9 Acute bronchitis, unspecified Z86.010 Personal history of colonic polyps E11.9 Type 2 diabetes mellitus without complications Office Visit 01/21/2017 3:40p [facility] Office Lizette Acevedo Z00.01 Encounter for Arnold Lott general adult medical exam w abnormal findings I65.29 Occlusion and stenosis of unspecified carotid artery F17.210 Nicotine dependence, cigarettes, uncomplicated E66.3 Overweight E78.1 Pure hyperglyceridemia Office Visit 02/10/2016 11:15a [facility] Sigrid Naqvi, J20.9 Acute bronchitis, CAREER AGENT unspecified Office Visit 12/03/2015 3:30p [facility] Office Alana I65.22 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, 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 R03.0 Elevated blood-pressure reading, w/o diagnosis of htn G47.00 Insomnia, unspecified R53.83 Other fatigue Office Visit 10/17/2015 11:00a [facility] Office Lizette Acevedo I65.22 Occlusion and Arnold Lott stenosis of left carotid artery R03.0 Elevated blood-pressure reading, w/o diagnosis of htn Office Visit 09/25/2015 10:30a [facility] Alana R55 Syncope and 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 continue with antihistamine.need to rest.plenty of fluids.R63.4 Abnormal weight lossNew Labs:CBC Electronic (a New), Ordered: 12/16/18Comp Metabolic-ALL Lab Compani, Ordered: 12/16/18TSH (a/[facility]), Ordered: 10/30Ua - Micro (Fma), Ordered: 12/16/18B12 (a/[facility] Ordered: J43.8 Other emphysemaComments:stable. No need for meds at this time. consider referral to pulmonology ( lung specialist) in the future .I71.4 Abdominal aortic aneurysm, without ruptureComments:repeat ct scan next MvsbfpeI65.210 Nicotine dependence, cigarettes, uncomplicatedComments:would be great to get down to 9 cigarettes a day by next appointment.E11.9 Type 2 diabetes mellitus without complicationsNew Labs:Hemoglobin A1c With Glycomark, Ordered: 12/16/18Hemoglobin A1c, Ordered: 12/16/18AllComments:Medication Management Patient Understands medications he's taking? Yes No Are there Barriersto Adherence? Yes No Has the patient been asked about herbal supplements and therapies, and OTC meds? Yes No
[2018-12-20 10:27] VITALS: BP 108/61
--- NOTE | 2018-12-20 11:17 | UC ---
Dizzy HPI HPI Summary: ONSET 6 DAYS AGO OF COUGH, SORE THROAT, CONGESTION AND OVERALL MALAISE. FELT LIKE HE WAS GOING TO PASS OUT SO HE SAW PCP 4 DAYS AGO AND HAD NEGATIVE STREP TEST. LABS DRAWN. STATES OVER THE WEEKEND IF SYMPTOMS GOT PROGRESSIVELY WORSE. HE IS FEELING DIZZY AND LIGHTHEADED. DENIES CHEST PAIN, SHORTNESS OF BREATH, NAUSEA, SWEATS. HE HAS NO HISTORY OF HEART DISEASE BUT DOES HAVE A HISTORY OF CAROTID DISEASE AND STROKE. HE REPORTS A RECENT CHANGE OF HIS BLOOD PRESSURE MEDICATION TO LISINOPRIL WHICH HE THINKS HE DOES NOT NEED. - History Of Current Complaint Chief Complaint: UCRespiratory Stated Complaint: HEAD CONGESTION Time Seen by Provider: 12/20/18 10:32 Hx Obtained From: Patient, Family/Vapor Coater - Onset/Duration: Gradual Onset, Lasting Days, Still Present Timing: Constant Severity Initially: Moderate Severity Currently: Moderate Pain Intensity: 0 Pain Scale Used: 0-10 Numeric Character: Lightheaded, Dizzy Aggravating Factor(s): Nothing Alleviating Factor(s): Nothing Associated Signs And Symptoms: Negative: Nausea, Diaphoresis, Chest Pain, SOB, Visual Changes - Allergies/Home Medications Allergies/Adverse Reactions: Allergies Allergy/AdvReac Type Severity Reaction Status Date / Time oxycodone Allergy Unknown Verified 12/20/18 10:27 Reaction Details varenicline [From Chantix] Allergy SUICIDAL Verified 12/20/18 10:27 THOUGHTS, NIGHTMARES Home Medications: Home Medications Lisinopril 1 tab PO DAILY 12/20/18 [History Confirmed 12/20/18] PMH/Surg Hx/FS Hx/Imm Hx Endocrine History: Diabetes Cardiovascular History: Hypertension Other Cardiovascular History: CAROTID DISEASE Other Cancer History: TONGUE - Surgical History Surgical History: Yes Surgery Procedure, Year, and Place: TEMPORARY FEEDING TUBE - 2007 - DUE TO TONGUE CANCER - SQUAMOUS CELL CARCINOMA. REMOVED. 2016-CAROTID BYPASS- [place] - Family History Known Family History: Positive: Hypertension - Social History Alcohol Use: None Substance Use Type: None Smoking Status (MU): Heavy Every Day Tobacco Smoker Amount Used/How Often: 0.5-1 PPD X 44 YEARS Have You Smoked in the Last Year: Yes Household Exposure Type: Cigarettes Review of Systems All Other Systems Reviewed And Are Negative: Yes Constitutional: Positive: Fatigue ENT: Positive: Sore Throat, Nasal Discharge Respiratory: Positive: Cough Cardiovascular: Positive: Negative Gastrointestinal: Positive: Negative Neurological: Positive: Other - DIZZY Physical Exam Triage Information Reviewed: Yes Appearance: Well-Appearing, No Pain Distress, Well-Nourished Vital Signs: Initial Vital Signs Temp 98 F 12/20/18 10:23 Pulse 78 12/20/18 10:23 Resp 18 12/20/18 10:23 BP 108/61 12/20/18 10:23 Pulse Ox 100 12/20/18 10:23 Vital Signs Reviewed: Yes Eyes: Positive: Conjunctiva Clear ENT: Positive: Hearing grossly normal, Pharynx normal Neck: Positive: Supple, Nontender, No Lymphadenopathy, Other: - RIGHT CAROTID BRUIT Respiratory Exam: Normal Cardiovascular: Positive: RRR, Other: - RIGHT CAROTID BRUIT Abdomen Description: Positive: Nontender, Soft Musculoskeletal: Positive: No Edema Neurological: Positive: Alert Psychological: Positive: Age Appropriate Behavior Skin: Negative: Rashes Diagnostics - EKG Cardiac Rate: NL - 79BPM Cardiac Rhythm: Sinus: Normal Ectopy: None ST Segment: Non-Specific - FLATTENING/INVERSION INFERIOR LEADS ALSO SEEN IN 2016 EKG Comparison: No Significant Change Dizzy Course/Dx - Course Course Of Treatment: PT WITH 6 DAYS OF WORSENING DIZZINESS AND LIGHTHEADEDNESS AND AN EPISODE OF PRESYNCOPE 4 DAYS AGO. ALSO HAS SOME COUGH AND CONGESTION. SAW PCP 4 DAYS AGO AND HAD NEG STREP. LABS WERE DRAWN. PT NOT YET INFORMED OF RESULTS AND THEY ARE NOT AVAILABLE ON OUR SYSTEM. HE HAS A H/O STROKE AND CAROTID DISEASE. STATES 100 % BLOCKAGE ON THE LEFT THAT IS CHRONIC. HAD 95% BLOCKAGE ON THE RIGHT AND HAD A RIGHT CAROTID ENDARTERECTOMY SEVERAL YEARS AGO FOLLOWED IN [place]. STATES CAROTID DISEASE IS DUE TO RADIATION HE HAD ACROSS THE FACE FOR H/O TONGUE CANCER. EKG TODAY UNCHANGED FROM PREVIOUS. NO H/O HEART DISEASE. IS TAKING LISINOPRIL FOR BLOOD PRESSURE BUT HE DOES NOT THINK HE NEEDS THIS MEDICATION. STATES HIS BLOOD PRESSURE NORMALLY RUNS SYSTOLIC 120s. PT OFFERED TRANSPORT TO THE ER BY AMBULANCE BUT DECLINES. ADVISED THAT BY NOT TRAVELING IN A MONITORED SETTING HE COULD BE RISKING WORSENING OF HIS CONDITION THAT COULD POSE A THREAT TO HIS LIFE, HEALTH AND MEDICAL SAFETY. HE VERBALIZES UNDERSTANDING AND CONTINUES TO DECLINE AMBULANCE TRANSFER. - Differential Dx/Diagnosis Provider Diagnosis: Dizziness - Physician Notifications Discussed Patient Care With: Laquita Hunt - [place] [facility] [place] PR[place] Time Discussed With Above Provider: 11:25 Instructed by Provider To: MD Will See In ED Discharge - Sign-Out/Discharge Documenting (check all that apply): Patient Departure All imaging exams completed and their final reports reviewed: No Studies - Discharge Plan Condition: Stable Disposition: TRANS HIGHER LVL OF CARE FAC Patient Education Materials: Dizziness (ED) Referrals: Lizette Lott MD [Primary Care Provider] - If Needed Additional Instructions: GO DIRECTLY TO [place] [facility] [place] FROM HERE FOR FURTHER EVALUATION. YOU HAVE DECLINED TRANSFER TO THE ER BY AMBULANCE. BE ADVISED THAT BY NOT TRAVELING IN A MONITORED SETTING YOU COULD BE RISKING WORSENING OF YOUR CONDITION THAT COULD POSE A THREAT TO YOUR LIFE, HEALTH AND MEDICAL SAFETY. - Billing Disposition and Condition Condition: STABLE Disposition: Trans Higher Lvl of Care Fac
== END 2018-12-20 11:20 | disposition short-term general hospital (02) ==
LOC: UCEAST 10:17
DX: R42 Dizziness and giddiness (principal); R05 Cough; J02.9 Acute pharyngitis, unspecified; E11.9 Type 2 diabetes mellitus without complications; I10 Essential (primary) hypertension; F17.210 Nicotine dependence, cigarettes, uncomplicated; Z88.5 Allergy status to narcotic agent
CPT/HCPCS: 99212; G0463

== ENCOUNTER 2018-12-20 11:46 | Emergency (ER) | payer BC ==
[2018-12-20] MEDS ORDERED: NS 0.9% 1000 ML** 1,000 ML IV ONE (12:51)
[2018-12-20 13:12] LABS: ABS Basophils 0.1 10^3/ul (0-0.2); ABS Eosinophils 0.1 10^3/ul (0-0.6); ABS Lymphocytes 2.1 10^3/ul (1.0-4.8); ABS Monocytes 1.4 10^3/ul (0-0.8); ABS Neutrophils 4.6 10^3/ul (1.5-7.7); Eosinophil % 1.7 %; Hematocrit 42 % (42-52); Hemoglobin 14.3 g/dL (14.0-18.0); Lymphocyte % 25.1 %; Mean Corpuscular HGB Conc 34 g/dL (31-36); Mean Corpuscular Hemoglobin 30 pg (27-31); Mean Corpuscular Volume 87 fL (80-94); Mean Platelet Volume 8.3 fL (7.4-10.4); Nucleated Red Blood Cells % 0.1; Platelet Count 219 10^3/uL (150-450); Red Blood Count 4.84 10^6 /uL (4.18-5.48); Red Cell Distribution Width 14 % (10-15); White Blood Count 8.3 10^3/uL (3.5-10.8)
--- NOTE | 2018-12-20 13:24 | ED ---
Syncope/Near Syncope - HPI Summary HPI Summary: This patient is a 58 year old M w hx head and neck cancer s/p radiation/chemo in remission, carotid artery bypass 4 years ago who is presenting to [facility] [place] by with a chief complaint of intermittent lightheadedness since 12/15/18. Pt has been feeling lightheaded and felt as if he was about to pass out, and on 12/20/18 he was outside in the sun for a long period of time. He had another similar episode today. Pt went to the doctor on 12/15/18, states he lost 10 lbs but feels well. Pt reports congestion, neck pain, sore throat, runny and stuffy nose. Pt denies loss of appetite, SOB, and CP. Pt had a bypass right carotid artery 3-4 years ago (2/2 stenosis from radiaiton), before surgery he also had episodes of lightheaded but in unsure if this is similar. Pt is a heavy smoker. - History Of Current Complaint Chief Complaint: EDDizziness Time Seen by Provider: 12/20/18 12:38 Hx Obtained From: Patient Onset/Duration: Sudden Onset, Lasting Minutes, Lasting Days Timing: Intermittent Episode Lasting - minutes Context: Witnessed Associated Head Trauma: No Aggravating Factor(s): Nothing Alleviating Factor(s): Spontaneous Resolution Associated Signs And Symptoms: Negative - Chest Pain, SOB, Lightheadedness, Other - pos - congestion, neck pain, sore throat, runny and stuffy nose - Allergies/Home Medications Allergies/Adverse Reactions: Allergies Allergy/AdvReac Type Severity Reaction Status Date / Time oxycodone Allergy Unknown Verified 12/20/18 11:51 Reaction Details varenicline [From Chantix] Allergy SUICIDAL Verified 12/20/18 11:51 THOUGHTS, NIGHTMARES PMH/Surg Hx/FS Hx/Imm Hx Endocrine/Hematology History: Reports: Hx Diabetes Cardiovascular History: Reports: Hx Hypertension, Other Cardiovascular Problems/ Disorders - RIGHT CAROTID ARTERY WITH [id number] PLAVIX SINCE Denies: Hx Pacemaker/ICD History: Reports: Hx Kidney Stones - RIGHT-06/2018-REPORTS PASSED Denies: Hx Renal Disease Sensory History: Reports: Hx Contacts or Glasses - GLASSES Denies: Hx Hearing Aid Opthamlomology History: Reports: Hx Contacts or Glasses - GLASSES Psychiatric History: Denies: Hx Panic Disorder - Cancer History Cancer Type, Location and Year: TONGUE CANCER - SQUAMOUS CELL CARCINOMA Hx Chemotherapy: Yes Hx Radiation Therapy: Yes - Surgical History Surgery Procedure, Year, and Place: TEMPORARY FEEDING TUBE - 2008 - DUE TO TONGUE CANCER - SQUAMOUS CELL CARCINOMA. REMOVED. 2016-CAROTID BYPASS- [place] [facility] [place] Hx Anesthesia Reactions: No Infectious Disease History: No Infectious Disease History: Denies: Traveled Outside the [place] in Last 30 Days - Family History Known Family History: Positive: Hypertension - Social History Alcohol Use: None Substance Use Type: Reports: None Hx Tobacco Use: Yes Smoking Status (MU): Heavy Every Day Tobacco Smoker Amount Used/How Often: 0.5-1 PPD X 44 YEARS Have You Smoked in the Last Year: Yes Cessation Counseling: Counseled 3+Min - 10 Min Review of Systems Positive: Other - neg - loss of appetite Positive: Sore Throat, Nasal Discharge Negative: Chest Pain Negative: Shortness Of Breath Positive: Other - pos - neck pain All Other Systems Reviewed And Are Negative: Yes Physical Exam - Summary Physical Exam Summary: Constitutional: Well-developed, Well-nourished, Alert. (-) Distressed Skin: Warm, Dry HENT: Normocephalic; Atraumatic Eyes: Conjunctiva normal Neck: Musculoskeletal ROM normal neck. (-) JVD, (-) Stridor, (-) Tracheal deviation Cardio: Rhythm regular, rate normal, Heart sounds normal; Intact distal pulses; The pedal pulses are 2+ and symmetric. Radial pulses are 2+ and symmetric. (-) Murmur Pulmonary/Chest wall: Effort normal. (-) Respiratory distress, (-) Wheezes, (-) Rales Abd: Soft, (-) tenderness, (-) Distension, (-) Guarding, (-) Rebound Musculoskeletal: (-) Edema Lymph: (-) Cervical adenopathy Neuro: Alert, Oriented x3 Psych: Mood and affect Normal Triage Information Reviewed: Yes Vital Signs On Initial Exam: Initial Vitals Temp Pulse Resp BP Pulse Ox 98.1 F 82 16 192/85 97 12/20/18 11:48 12/20/18 11:48 12/20/18 11:48 12/20/18 11:48 12/20/18 11:48 Vital Signs Reviewed: Yes Diagnostics - Vital Signs Vital Signs Temp Pulse Resp BP Pulse Ox 12/20/18 13:00 74 20 94 12/20/18 12:19 73 20 97 12/20/18 11:48 98.1 F 82 16 192/85 97 - Laboratory Lab Results: Lab Results 12/20/18 Range/Units 13:04 WBC 8.3 (3.5-10.8) 10^3/uL RBC 4.84 (4.18-5.48) 10^6 /uL Hgb 14.3 (14.0-18.0) g/dL Hct 42 (42-52) % MCV 87 (80-94) fL MCH 30 (27-31) pg MCHC 34 (31-36) g/dL RDW 14 (10-15) % Plt Count 219 (150-450) 10^3/uL MPV 8.3 (7.4-10.4) fL Neut % (Auto) 55.6 % Lymph % (Auto) 25.1 % [place] % (Auto) 16.3 % Eos % (Auto) 1.7 % Baso % (Auto) 1.3 % Absolute Neuts (auto) 4.6 (1.5-7.7) 10^3/ul Absolute Lymphs (auto) 2.1 (1.0-4.8) 10^3/ul Absolute Monos (auto) 1.4 H (0-0.8) 10^3/ul Absolute Eos (auto) 0.1 (0-0.6) 10^3/ul Absolute Basos (auto) 0.1 (0-0.2) 10^3/ul Absolute Nucleated RBC 0.0 10^3/ul Nucleated RBC % 0.1 Result Diagrams: 12/20/18 13:04 12/20/18 13:04 Lab Statement: Any lab studies that have been ordered have been reviewed, and results considered in the medical decision making process. - Radiology CXR Radiology Interpretation Completed By: Radiologist Summary of Radiographic Findings: CXR reveals, per radiologist, IMPRESSION: STABLE SUBPLEURAL FIBROTIC CHANGES. NO ACTIVE CARDIOPULMONARY DISEASE. ED physician has reviewed this radiology report. Re-Evaluation - Re-Evaluation First Eval Re-Evaluation Time: 15:02 Course/Dx Course Of Treatment: 58 y/o male w hx head and neck cancer (in remission), carotid stenosis 2/2 radiation s/p bypsass on R p/w light headedness. Near syncope. DDx: - suspect 2/2 dehydration vs carotid insufficiency vs cardiac cause. - got recent US that showed patency of bypass. No CP. Trop neg. EKG WNL. Seizure: no witnessed seizure activity, incontinence or h/o seizures to suggest seizure today. Hypoxia and hypoglycemia less likely in this patient with normal sats and BG. Cardiac issue: electrical (dysarrhythmias, brugada, WPW, long QT). Less likely given no evidence of drop attack, no palpitations, no EKG findings to predispose to arrhythmias. No CP, no STEMI on EKG. Vessels: PE, dissection, AAA. Clinical picture inconsistent, no abd pain, no pulsatile mass, symmetric pulses, no risk factors of PE. Neuro: No VALLE, no personal or family h/o cerebral aneurysm, nml neuro exam, so this is unlikely ICH or sentinel bleed. Also: vasovagal, drugs/meds, autonomic insufficiency. [place] Syncope Rule. 1. History of CHF? No. 2. Hematocrit <30? no. 3. Abnormal ECG? no. 4. History of dyspnea? no. 5. SBP <90 at triage? no. If entirely negative, this study provides a 99.2% negative predictive value for , myocardial infarction, arrhythmia, pulmonary embolism, stroke, subarachnoid hemorrhage, significant hemorrhage, or any condition causing a return ED visit and hospitalization for a related event. Citation: " Prospective Validation of the [place] Syncope Rule to Predict Patients With Serious Outcomes" Annals of Emergency Medicine Volume 47, Issue 5, Pages 448-454, October 2005. Vitals : Laying - BP: 167/80, HR: 69 bpm. Sitting - BP: 163/99, HR : 59 bpm,. Standing - BP: 120/70, HR : 78 bpm. - LA elevated and orthostatics positive suspect dehydration, got 1 L IVF, declined 2nd liter. - advised patient I would like him to stay for tele monitoring and repeat chem/LA but he declined stated he wanted to leave AMA. AMA. Patient is AAOx4 with clear sensorium, no signs of intoxication, no SI/HI, a normal gait and normal speech pattern and capacity to refuse care. I explained to the patient the risks of leaving AMA to include , disability, and loss of function. I had an extensive conversation with the patient regarding return precautions and encouraged them to return sooner for any worsening condition, new symptoms or ANY other concerns. - Diagnoses Provider Diagnoses: Near syncope Discharge - Sign-Out/Discharge Documenting (check all that apply): Patient Departure - AMA Patient Received Moderate/Deep Sedation with Procedure: No - Discharge Plan Condition: Stable Disposition: AGAINST MEDICAL ADVICE Patient Education Materials: Near Syncope (ED) Referrals: Lizette Lott MD [Primary Care Provider] - 2 Days Additional Instructions: Follow up with PCP within 2 days. PLEASE RETURN TO THE ED TO IMMEDIATELY FOR WORSENING OR CONCERNING SYMPTOMS. - Billing Disposition and Condition Condition: STABLE Disposition: Against Medical Advice - Attestation Statements Document Initiated by Scribe: Yes Documenting Scribe: Britt Roach Provider For Whom Ruperto is Documenting (Include Credential): Dr. Luis Eduardo aSlgado MD Scribe Attestation: Britt Shipley scribed for Dr. Luis Eduardo Salgado MD on 12/20/18 at 1614. Scribe Documentation Reviewed: Yes Provider Attestation: The documentation as recorded by the Britt roach accurately reflects the service I personally performed and the decisions made by me, Dr. Luis Eduardo Salgado MD Status of Scribe Document: Viewed
[2018-12-20 13:39] LABS: Albumin 4.3 g/dL (3.2-5.2); Albumin/Globulin Ratio 1.7 (1-3); BUN/Creatinine Ratio 16.8 (8-20); Calcium 10.2 mg/dL (8.6-10.3); EGFR African American 71.3 (>60); EGFR Non-African American 58.9 (>60); Globulin 2.6 g/dL (2-4); Magnesium 1.4 mg/dL (1.9-2.7); Total Bilirubin 0.4 mg/dL (0.2-1.0); Total Protein 6.9 g/dL (6.4-8.9); Troponin I 0.01 ng/mL (<0.04)
[2018-12-20 13:45] LABS: Potassium 5.4 mmol/L (3.5-5.0)
[2018-12-20 14:24] LABS: TSH (Thyroid Stimulating Horm) 4.52 mcIU/mL (0.34-5.60)
[2018-12-20 14:37] LABS: Urine Appearance Cloudy; Urine Bilirubin Negative (Negative); Urine Blood Negative (Negative); Urine Color Yellow; Urine Glucose Negative (Negative); Urine Ketones Negative (Negative); Urine Nitrite Negative (Negative); Urine Protein Negative (Negative); Urine Specific Gravity 1.011 (1.010-1.030); Urine Urobilinogen Negative (Negative)
[2018-12-20] MEDS ORDERED: NS 0.9% 1000 ML** 1,000 ML IV.FLUID IV ONE (14:38)
[2018-12-20 15:28] VITALS: BP 191/78
== END 2018-12-20 15:27 | disposition left against medical advice (07) ==
LOC: ED 11:46
DX: R55 Syncope and collapse (principal); E11.9 Type 2 diabetes mellitus without complications; I10 Essential (primary) hypertension; F17.210 Nicotine dependence, cigarettes, uncomplicated; Z88.5 Allergy status to narcotic agent; Z88.8 Allergy status to other drugs, medicaments and biological substances; Z79.01 Long term (current) use of anticoagulants; Z95.1 Presence of aortocoronary bypass graft
CPT/HCPCS: 36415; 71045; 80053; 81003; 83605; 83735; 84443; 84484; 85025; 93005; 96360; 99283

== ENCOUNTER 2019-05-10 07:39 | Day surgery (SDC) | payer BC ==
[2019-05-10] MEDS ORDERED: Lidocaine 1% INJ* 10 MG/ML 30 ML SDV ONE (09:50)
[2019-05-10] MEDS ORDERED: Bupivacaine 0.5% W/EPI SDV* 10 ML VIAL INJ ONE ×2 (09:50→10:19)
[2019-05-10 11:15] VITALS: BP 175/103
[2019-05-19 17:38] LABS: BLYM Result Summary Positive
--- NOTE | 2019-05-23 21:42 | OP ---
CC: Rylee Perdomo MD; Lizette Lott MD * DATE OF OPERATION: 05/10/19 - [facility] DATE OF : 56 SURGEON: Richar Heck MD LINUX DEVELOPER: None. ANESTHESIA: Local. PRE-OP DIAGNOSIS: Lymphoma. POST-OP DIAGNOSIS: Lymphoma. OPERATIVE PROCEDURE: Incisional biopsy of right inguinal lymph node. ESTIMATED BLOOD LOSS: Minimal. IV FLUIDS: None. SPECIMENS: Incision biopsy of right inguinal lymph node. DRAINS: None. COMPLICATIONS: None. COUNTS: The instrument, needle, and sponge counts were correct. DESCRIPTION OF PROCEDURE: The patient was brought to the operating room and placed on the table supine. Right groin was prepped and draped in the usual sterile fashion. Local anesthetic was infiltrated into the skin and soft tissue prior to making the incision. An incision was made in the inguinal crease overlying the palpable lymph node. Subcutaneous tissues were divided. Lymph node was identified. It was about 3 cm. Incisional biopsy of the lymph node was performed with scalpel. Specimen was sent fresh down to Pathology. Surgicel was used to achieve hemostasis with direct pressure. The wound was closed in 2 layers with 3-0 Vicryl for the subcutaneous tissue, 4-0 Monocryl for the skin. Steri-Strips were applied. The patient tolerated the procedure well, was extubated and transferred to Recovery stable. [id number]/[facility] #: [id number] [facility]
== END 2019-05-10 11:00 | disposition home or self-care (01) ==
LOC: OR 07:39
PROVIDERS: ATTEND Surgery
DX: C82.35 Follicular lymphoma grade IIIa, lymph nodes of inguinal region and lower limb (principal); F17.210 Nicotine dependence, cigarettes, uncomplicated; I25.10 Atherosclerotic heart disease of native coronary artery without angina pectoris; E11.9 Type 2 diabetes mellitus without complications; Z79.84 Long term (current) use of oral hypoglycemic drugs; Z85.818 Personal history of malignant neoplasm of other sites of lip, oral cavity, and pharynx; E78.5 Hyperlipidemia, unspecified; I10 Essential (primary) hypertension; Z85.828 Personal history of other malignant neoplasm of skin
CPT/HCPCS: 88184; 88185; 88187; 88188; 88189; 88305; 88333; 88341; 88342; 88360; 88377

== ENCOUNTER 2019-05-26 09:33 | Day surgery (SDC) | payer BC ==
[~2019-05-26 09:33] MED LIST: Buffered Lidocaine 1% SYRIN* 1 ML/SYRINGE INTRADERM ONE; Lactated Ringers 1000 ML Bag* 1,000 ML IV SCH
[2019-05-26] MEDS ORDERED: ceFAZolin 2 GM in NS PREMIX(*) 2 GM/100 ML BAG IVPB ONE (11:46)
[2019-05-26] MEDS ORDERED: Acetaminophen TAB* 325 MG PO PRN (12:20)
[2019-05-26] MEDS ORDERED: oxyCODONE TAB* 5 MG TAB PO PRN (12:20)
[2019-05-26] MEDS ORDERED: Naloxone* 0.4 MG/ML 1 ML VIAL IV PRN (12:20)
[2019-05-26] MEDS ORDERED: Ondansetron INJ* 2 MG/ML VIAL IV PRN (12:20)
[2019-05-26] MEDS ORDERED: Lidocaine 1% INJ* 10 MG/ML 30 ML SDV ONE (12:46)
[2019-05-26] MEDS ORDERED: Midazolam* 1 MG/ML 2 ML VIAL (2 MG) ONE ×2 (12:55→13:19)
[2019-05-26] MEDS ORDERED: Lidocaine 2% PF * 5 ML VIAL ONE (13:09)
[2019-05-26] MEDS ORDERED: Propofol* 10 MG/ML 20 ML BTL ONE ×3 (13:09→13:23)
--- NOTE | 2019-05-26 14:09 | OP ---
Operative Report - Blank - Operative Report Date of Operation: 05/26/19 Note: PREOP DX:LYMPHOMA POSTOP DX:SAME PROC:POWERPORT PLACEMENT VIA LEFT CEPHALIC VEIN CUT-DOWN SURG:MECENAS ASSIST:NONE ANES:LOCAL/MAC;ALBINA EBL:<10ML IVF:CRYSTALLOID SPEC:NONE DRAIN:NONE COMPL:NONE COND:STABLE TO PACU FINDINGS: ABOVE
[2019-05-26 15:21] VITALS: BP 149/95
--- NOTE | 2019-05-26 22:11 | OP ---
CC: Lizette Lott MD; Rylee Perdomo MD OPERATIVE REPORT: DATE OF OPERATION: 05/26/19 DATE OF : 56 SURGEON: Richar Heck MD PERSONAL ATTENDANT: None. ANESTHESIOLOGIST: Dr. Hagen. ANESTHESIA: Local MAC. PRE-OP DIAGNOSIS: Lymphoma. POST-OP DIAGNOSIS: Lymphoma. OPERATIVE PROCEDURE: PowerPort placement via left cephalic vein cut down. ESTIMATED BLOOD LOSS: Minimal. IV FLUIDS: Crystalloid. SPECIMEN: None. DRAINS: None. COMPLICATIONS: None. COUNTS: Instrument, needle, sponge counts correct. DESCRIPTION OF PROCEDURE: The patient was brought to the operating room and placed on the table supi ne. Sequential compression devices were placed in both lower extremities. Intravenous sedation was administered. He was positioned and padded appropriately. He received appropriate intravenous antib iotics. He was prepped and draped in the usual sterile fashion. A time-out was performed. Local anesthetic was infiltrated for a left subclavian approach. After 3 attempts to access of the l eft subclavian vein without success, it was decided to perform left cephalic vein cut down. First local anesthetic was infiltrated in the upper left chest. A transverse incision was made over the deltopectoral triangle. After dividing subcutaneous tissues and entering the deltopectoral trian gle, the cephalic vein was identified. It was isolated with two 3-0 silk sutures. Incision was exten ded further medially to create the subcutaneous pocket. The 8-[place] PowerPort was selected for use. The vein was ligated distally. Transverse venotomy was created with an 11-blade scalpel and the cat heter was inserted under fluoroscopic guidance and positioned at the atriocaval junction. This was a bout 27 cm in the vein. The catheter was then secured by tying down the proximal 3-0 silk suture. T he catheter was then cut to an appropriate length and connected to the port and this was placed into the pocket and sutured in position with 2-0 Prolene. The port was accessed, it lyndsay and flushed easi ly. The pocket was closed in 2 layers and 3-0 Vicryl to close the subcutaneous tissues and 4-0 Monoc ryl to close the skin in a running subcuticular fashion. DermaFlex was applied. The port was access ed and it was drawn and the flushed with heparinized saline. The patient tolerated the procedure wel l and was transferred to Recovery in stable condition. [id number]/[facility] #: [id number]
== END 2019-05-26 15:56 | disposition home or self-care (01) ==
LOC: OR 09:33
PROVIDERS: ATTEND Surgery
DX: C82.13 Follicular lymphoma grade II, intra-abdominal lymph nodes (principal); F17.210 Nicotine dependence, cigarettes, uncomplicated; E11.9 Type 2 diabetes mellitus without complications; Z79.84 Long term (current) use of oral hypoglycemic drugs; Z98.62 Peripheral vascular angioplasty status; Z79.01 Long term (current) use of anticoagulants; Z86.73 Personal history of transient ischemic attack (TIA), and cerebral infarction without residual deficits; Z85.89 Personal history of malignant neoplasm of other organs and systems
CPT/HCPCS: 71045; 76000; C1788; J0690; J1642; J2250; J2704

== ENCOUNTER 2019-06-20 06:55 | Emergency (ER) | payer BC ==
[2019-06-20] MEDS ORDERED: NS 0.9% 1000 ML** 1,000 ML IV ONE (07:06)
--- OUTSIDE RECORDS SUMMARY | 2019-06-20 07:06 | XMS REPORT | Continuity of Care Document ---
:1960 External Reference #:[id number] Author Name Richar Heck MD, FACS (transmitted by agent of provider Soledad Magallanes) Address [address] [facility] [address] [place] [address] Care Team Providers Name Role Phone Lizette Lott MD - Internal Care Team Information Network Account Manager Medicine Problems Description No Information Available Social History Type Date Description Comments Sex Unknown ETOH Use Denies alcohol use Tobacco Use Start: Unknown Patient is a current smoker, 1/2 ppd smokes every day Recreational Drug Use Denies Drug Use Smoking Status Reviewed: 05/19/19 Patient is a current smoker, 1/2 ppd smokes every day Exercise Type/Frequency Does not exercise Allergies, Adverse Reactions, Alerts Active Allergies Reaction Severity Comments Date Oxycodone Mild Itchy, trouble urinating 01/14/2016 Chantix Suicidal ideation nightmares 05/08/2019 Medications Active Medications SIG Qnty Indications Ordering Provider Date Atorvastatin Calcium 1 by mouth every Unknown 80mg day Tablets Plavix 1 by mouth every Unknown 75mg Tablets day Aspirin Ec 1 by mouth daily Unknown 325mg Tablets DR Metformin HCL 1 by mouth three Unknown 500mg Tablets times a daily Medications Administered in Office Medication SIG Qnty Indications Ordering Provider Date Inj, Regadenoson, 0.1 MG Yo Cuevas, DO FAC 01/15/2016 Injection Technetium TC 99M Yo Cuevas DO FAC 01/15/2016 Tetrofosmin, Per Unit Dose Up To 40 Millicuries Injection Immunizations Description No Information Available Vital Signs Date Vital Result Comment 05/19/2019 9:33am Heart Rate 80 /min BP Systolic Sitting 148 mmHg BP Diastolic Sitting 82 mmHg Respiratory Rate 16 /min Body Temperature 97.3 F 05/08/2019 9:26am Height 71 inches 5'11" Weight 215.00 lb Heart Rate 76 /min BP Systolic Sitting 166 mmHg BP Diastolic Sitting 92 mmHg Respiratory Rate 16 /min Body Temperature 97.7 F BMI (Body Mass Index) 30.0 kg/m2 Results Test Acquired Date Facility Test Result H/L Range Note Leukemia/Lym 05/10/2019 [facility] Path Interpretation TNP phoma Flow [address] 2-8 [place] [address] [phone] Path Interpret 9-15 Marker (SEE NOTE) 1 Path Interpret > 16 Marker TNP Surgical 05/10/2019 [facility] Surgical SEE RESULT [address] Pathology BELOW [place], [place] [id number] [phone] PDFReport SEE IMAGE Laboratory test 05/03/2019 [facility] Point of Care 132 mg/dL High 70-100 [address] [place] [address] [phone] Leukemia/Lympho 04/27/2019 [facility] Path (SEE 4 ma Phenot [address] Interpretation 2-8 NOTE) [place] [address] Marker [phone] Path Interpret 9-15 Marker TNP Path Interpret > 16 Marker TNP B-Cell Lymphoma 04/27/2019 [facility] FBLP Specimen Bone Marrow Fish [address] [place], [place] [address] [phone] FBLP Reason for Referral See Comment 5 FBLP Method See Comment 6 FBLP Result Summary Normal FBLP Result See Comment 7 FBLP Result Table See Comment 8 FBLP Interpretation See Comment 9 FBLP Released By See Comment 10 FBLP Disclaimer See Comment 11 Bone Marrow 04/27/2019 [facility] BM Result Summary Normal Chromosomes [address] [place], [place] [address] [phone] BM Chromosome Specimen Bone Marrow BM Referral Reason See Comment 12 BM Chromosome Method See Comment 13 BM Chromo Banding Method See Comment 14 BM Cromosome Results 46,XY[20] BM Chromosome Interpretation See Comment 15 Released By See Comment 16 CBC Auto 04/27/2019 [facility] White Blood 11.0 10^3/uL High 3.5-10.[address] [place] [address] [phone] Red Blood Count 5.22 10^6/uL Normal 4.18-5.48 Hemoglobin 15.4 g/dL Normal 14.0-18.0 Hematocrit 45 % Normal 42-52 Mean Corpuscular Volume 86 fL Normal 80-94 Mean Corpuscular Hemoglobin 30 pg Normal 27-31 Mean Corpuscular HGB Conc 34 g/dL Normal 31-36 Red Cell Distribution Width 14 % Normal 10-15 Platelet Count 235 10^3/uL Normal 150-450 Mean Platelet Volume 8.5 fL Normal 7.4-10.4 Abs Neutrophils 7.9 10^3/uL High 1.5-7.7 Abs Lymphocytes 1.7 10^3/uL Normal 1.0-4.8 Abs Monocytes 1.2 10^3/uL High 0-0.8 Abs Eosinophils 0.1 10^3/uL Normal 0-0.6 Abs Basophils 0.1 10^3/uL Normal 0-0.2 Abs Nucleated RBC 0.0 10^3/uL Granulocyte % 71.4 % Lymphocyte % 15.5 % Monocyte % 11.0 % Eosinophil % 1.0 % Basophil % 1.1 % Nucleated Red Blood Cells % 0.0 1 FINAL DIAGNOSIS: Specimen Source: Right groin lymph node Flow cytometry immunophenotypic analysis: Involved by lambda light chain restricted, CD19, CD20 and CD10 positive CD5 negative lymphoproliferative disorder. Interpretative data: Lymphocytes: 100% of WBCs B-cells: 80% of lymphocytes with near-complete dominant lambda light chain restricted CD19 and CD20 positive CD10 positive, CD5 negative population. T-cells/NK cells: No aberrant population detected. Markers tested: CD3, CD5, CD7, CD10, CD19, CD20, CD23, CD45, kappa surface light chains, lambda surface light chains, 7-AAD. Quality Assessment: Acceptable Viability: Acceptable Viable lymphocytes (7-AAD): 99% Specimen received within validated guidelines. A Erickson-Giemsa stained slide prepared from the flow cytometry specimen was examined for quality purposes. Electronically signed by: Charli Hall MD 05/15/19 1422 Technical component performed by: [place] [address] Barrel Tester: Amari Moore II, MD, PhD. 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 See comment. Comment: The tissue sections demonstrate a diffusely effaced lymph node architecture demonstrating haphazardly arranged lymphocytes demonstrating markedly irregular nuclear contours and varying from intermediate to large size with approximately 40% of meeting morphologic criteria for large B cells. Mitotic figures are easily found in the background demonstrates small mature T cells as well as increased vascularity. No necrosis is seen. No definitive follicular architecture is seen. The following immunohistochemical stains are performed with appropriate controls. CD20 diffuse strong positive CD79a diffuse strong positive Mum 1 negative in B cells Cyclin D1 negative in B cells Bcl-2 diffuse strong positive PAX 5 diffuse positive CD10 weak to moderate variable positive CD5 positive in background T cells CD3 positive in background T cells Ki-67 variable, up to 40% CONTINUED ON NEXT PAGE DEPARTMENT OF PATHOLOGY, [address] [place] [address] Charli Hall M.D. Director [place] # [id number] These findings are definitively those of an aggressive B-cell lymphoma. Based on the findings 2 date differential diagnosis includes the somewhat rarer entity of diffuse variant of follicular lymphoma though this lesion is known to occur specifically in groin nodes in man in the sixth through a decade. Alternatively, this malignancy falls within the morphologic spectrum for diffuse large B-cell lymphoma though admittedly to the lower end of aggressive features. Additional studies including fish studies for genetic translocations as well as CD21 staining to further elaborate the follicular architecture are pending and the above rendered diagnosis will be refined within these elements are available for interpretation. This case was discussed with Dr. Perdomo on 05/18/2019 approximate 10 AM. PATHOLOGY SURGICAL CONSULT Frozen section (FS)/Touch Prep (TP)/Gross Consult (GC) TP) Lymph node, right groin, biopsy: a) Mixed lymphoid elements. (DS) b) Sent for flow cytometry. (DS) SPECIAL STUDIES Flow cytometry has been performed at [place], [place]. The testing reveals: FINAL DIAGNOSIS: Specimen Source: Right groin lymph node Flow cytometry immunophenotypic analysis: Involved by lambda light chain restricted, CD19, CD20 and CD10 positive CD5 negative lymphoproliferative disorder. Interpretative data: Lymphocytes: 100% of WBCs B-cells: 80% of lymphocytes with near-complete dominant lambda light chain restricted CD19 and CD20 positive CD10 positive, CD5 negative population. T-cells/NK cells: No aberrant population detected. CONTINUED ON NEXT PAGE DEPARTMENT OF PATHOLOGY, [address] [place], [place] [id number] Charli Hall M.D. Director [place] # [id number] Markers tested: CD3, CD5, CD7, CD10, CD19, CD20, CD23, CD45, kappa surface light chains, lambda surface light chains, 7-AAD. Quality Assessment: Acceptable Viability: Acceptable Viable lymphocytes (7-AAD): 99% Specimen received within validated guidelines. A Erickson-Giemsa stained slide prepared from the flow cytometry specimen was examined for quality purposes. Electronically signed by: Charli Hall MD 05/15/19 1422 Technical component performed by: [facility] [place] [id number] Barrel Tester: Amari Moore II, MD, PhD. PRE-OPERATIVE DIAGNOSIS Localized enlarged lymph nodes GROSS DESCRIPTION The specimen is received fresh labeled, Incisional Biopsy Lymph Node Right Groin, and consists of a 1.4 x 1.1 x 0.9 cm legih-pink lymph node. The cut surface is glistening leigh-pink. A telephone claims representative section is submitted for flow cytometry. The remaining specimen is submitted in one cassette. Signed by and Reported on: Charli Hall MD 10/30 1428 END OF REPORT DEPARTMENT OF PATHOLOGY, [address] [place] [address] Charli Hall M.D. Director [facility] # [id number] 3 Staff Counselor: [id number] FINAL DIAGNOSIS: Specimen Source: Bone marrow Flow cytometry immunophenotypic analysis: No evidence of an immunophenotypically abnormal cell population. Interpretative data: Blasts: 1% of gated events Lymphocytes: 11% of gated events B-cells: 7% of gated events; kappa:lambda within normal limits T-cells/NK cells: No aberrant population detected. Markers tested: CD3, CD10, CD16, CD19, CD34, CD45, kappa surface light chains, lambda surface light chains, 7-AAD. Quality Assessment: Acceptable Viability: Acceptable Viable lymphocytes (7-AAD): 93% Specimen received within validated guidelines. A Erickson-Giemsa stained slide prepared from the flow cytometry specimen was examined for quality purposes. Electronically signed by: Alana Aragon MD 05/01/19 0948 Technical component performed by: [address] [address] Barrel Tester: Amari Moore II, MD, PhD. 5 C82.13 Follicular lymphoma grade II, intra-abdominal lymph nodes 6 Locus and probes [Strategy;#Nuclei;Class] 3q27(3'BCL6,5'BCL6) [BAP;200;ASR] 18q21(3'BCL2,5'BCL2) [BAP;200;ASR] Probe strategies include: BAP=break-apart probe. 7 RESULT: Interphase FISH is normal for all loci studied. 8 Abnormality Name Result Abn% Cutoff% 18q21(BCL2 sep) Normal <5.5 3q27(BCL6 sep) Normal <3.5 9 This result is within normal limits for the BCL2 and BCL6 gene regions. A normal FISH result does not exclude the presence of lymphoma in the bone marrow. Clinical and pathologic correlation is suggested. 10 RESULT: Brianda Ramsey D.O. Test Performed by: [place] [address] Director Of Staff Development: Amari Moore M.D. Ph.D.; CLIA# [id number] 11 Applicable to Analyte Specific Reagent (ASR) and Laboratory Developed Tests (LDT). This test was developed and its performance characteristics determined by [facility] in a manner consistent with CLIA requirements. It has not been cleared or approved by the U.S. Food and Drug Administration. This FISH test does not rule out other chromosome abnormalities. 12 C82.13 Follicular lymphoma grade II, intra-abdominal lymph nodes 13 RESULT: Culture without mitogens 14 Band Resolution: <400 Stain Name Cells Analyzed Cells Karyograms Counted Prepared GTL 20 0 2 Total 20 0 2 Ellison to Stain Name: GTL=G-banding; QFQ=Q-banding; DAPI=DAPI-staining; CBL=C-banding; AGNOR=Silver-staining; NON=Non-banded The sum of Cells Analyzed and Cells Counted equals the total cells examined. 15 No clonal abnormality was apparent. Additional cytogenetic studies are reported separately. 16 RESULT: Azalia Galicia M.D. Test Performed by: [place] [address] Director Of Staff Development: Amari Moore M.D. Ph.D.; CLIA# [id number] Procedures Description No Information Available Medical Devices Description No Information Available Encounters Type Date Location Provider Dx Diagnosis Office Visit 05[facility] Richar Heck MD, R59.0 Localized 9:15a Of Garage Helper FACS enlarged lymph nodes C82.13 Follicular lymphoma grade II, intra-abdominal lymph nodes Assessments Date Code Description Provider 05/19/2019 C82.13 Follicular lymphoma grade II, Richar Heck MD, FACS intra-abdominal lymph nodes 05/08/2019 R59.0 Localized enlarged lymph nodes Richar Heck MD, FACS 05/08/2019 C82.13 Follicular lymphoma grade II, Richar Heck MD, FACS intra-abdominal lymph nodes Plan of Treatment 05/19/2019 - Richar Heck MD, FACSC82.13 Follicular lymphoma grade II, intra- abdominal lymph nodesFollow up:As needed Functional Status Description No Information Available Mental Status Description No Information Available Referrals Description No Information Available
--- OUTSIDE RECORDS SUMMARY | 2019-06-20 07:06 | XMS REPORT | Continuity of Care Document ---
:1960 External Reference #:[id number] Author Name Richar Heck MD, FACS (transmitted by agent of provider Shannan Pierce) Address [address] [facility] [address] [place] [address] Care Team Providers Name Role Phone Lizette Lott MD - Internal Care Team Information Oil Field Pipeline Supervisor Medicine Rylee Perdomo MD - Hematology & Care Team Information Oil Field Pipeline Supervisor Oncology Problems Description No Information Available Social History Type Date Description Comments Sex Unknown ETOH Use Denies alcohol use Tobacco Use Start: Unknown Patient is a current smoker, 1/2 ppd smokes every day Recreational Drug Use Denies Drug Use Smoking Status Reviewed: 05/08/19 Patient is a current smoker, 1/2 ppd [...] Inj, Regadenoson, 0.1 MG Yo Cuevas, DO [facility] 01/15/2016 Injection Technetium TC 99M Yo Cuevas, DO [facility] 01/15/2016 Tetrofosmin, Per Unit Dose Up To 40 Millicuries Injection Immunizations Description No Information Available Vital Signs Date Vital Result Comment 05/08/2019 9:26am Height 71 inches 5'11" Weight 215.00 lb Heart Rate 76 /min BP Systolic Sitting 166 mmHg BP Diastolic Sitting 92 mmHg Respiratory Rate 16 /min Body Temperature 97.7 F BMI (Body Mass Index) 30.0 kg/m2 Results Test Acquired Date Facility Test Result H/L Range Note Laboratory test 05/03/2019 [facility] Point of Care 132 mg/dL High 70-[address] Glucose [place], [place] [id number] [phone] Leukemia/Lympho 04/27/2019 [facility] Path (SEE NOTE) 2 ma Phenot [address] Interpretation 2-8 [place] [address] Marker [phone] Path Interpret 9-15 Marker TNP Path Interpret > 16 Marker TNP B-Cell Lymphoma 04/27/2019 [facility] FBLP Specimen Bone Marrow Fish [address] [place] [address] [phone] FBLP Reason for Referral See Comment 3 FBLP Method See Comment 4 FBLP Result Summary Normal FBLP Result See Comment 5 FBLP Result Table See Comment 6 FBLP Interpretation See Comment 7 FBLP Released By See Comment 8 FBLP Disclaimer See Comment 9 Bone Marrow 04/27/2019 [facility] BM Result Summary Normal Chromosomes [address] [place] [address] [phone] BM Chromosome Specimen Bone Marrow BM Referral Reason See Comment 10 BM Chromosome Method See Comment 11 BM Chromo Banding Method See Comment 12 BM Cromosome Results 46,XY[20] BM Chromosome Interpretation See Comment 13 Released By See Comment 14 CBC Auto 04/27/2019 [facility] White Blood 11.0 10^3/uL High 3.5-10.[address] [place] [address] [phone] Red Blood Count 5.22 10^6/uL Normal 4.18-5.48 [...] Nucleated Red Blood Cells % 0.0 1 Religion Instructor: [id number] 2 FINAL DIAGNOSIS: Specimen Source: Bone marrow Flow [...] MD 05/01/19 0948 Technical component performed by: [place] [address] School Boat Driver: Amari Moore II, MD, PhD. 3 C82.13 Follicular lymphoma grade II, intra-abdominal lymph nodes 4 Locus and probes [Strategy;#Nuclei;Class] 3q27(3'BCL6,5'BCL6) [BAP;200;ASR] 18q21(3'BCL2,5'BCL2) [BAP;200;ASR] Probe strategies include: BAP=break-apart probe. 5 RESULT: Interphase FISH is normal for all loci studied. 6 Abnormality Name Result Abn% Cutoff% 18q21(BCL2 sep) Normal <5.5 3q27(BCL6 sep) Normal <3.5 7 This result is within normal limits for the BCL2 and BCL6 gene regions. A normal FISH result does not exclude the presence of lymphoma in the bone marrow. Clinical and pathologic correlation is suggested. 8 RESULT: Brianda Ramsey D.O. Test Performed by: [place] [address] Steam Conditioner Operator: Amari Moore M.D. Ph.D.; CLIA# [id number] 9 Applicable to Analyte Specific Reagent (ASR) and Laboratory Developed Tests (LDT). This test was developed and its performance characteristics determined by [facility] in a manner consistent with CLIA requirements. It has not been cleared or approved by the U.S. Food and Drug Administration. This FISH test does not rule out other chromosome abnormalities. 10 C82.13 Follicular lymphoma grade II, intra-abdominal lymph nodes 11 RESULT: Culture without mitogens 12 Band Resolution: <400 Stain Name Cells Analyzed Cells Karyograms Counted Prepared GTL 20 0 2 Total 20 0 2 Ellison to Stain Name: GTL=G-banding; QFQ=Q-banding; DAPI=DAPI-staining; CBL=C-banding; AGNOR=Silver-staining; NON=Non-banded The sum of Cells Analyzed and Cells Counted equals the total cells examined. 13 No clonal abnormality was apparent. Additional cytogenetic studies are reported separately. 14 RESULT: Azalia Galicia M.D. Test Performed by: [place] [address] Steam Conditioner Operator: Amari Moore M.D. Ph.D.; CLIA# [id number] Procedures Description No Information Available Medical Devices Description No Information Available Encounters Description No Information Available Assessments Date Code Description Provider 05/08/2019 R59.0 Localized enlarged lymph nodes Richar Heck MD, FACS Plan of Treatment Future Appointment(s):05/10/2019 9:30 am - Richar Heck MD, [facility] at [facility]05/08/2019 - Richar Heck MD, FACSR59.0 Localized enlarged lymph nodes Functional Status Description No Information Available Mental Status Description No Information Available Referrals Description No Information Available
--- OUTSIDE RECORDS SUMMARY | 2019-06-20 07:06 | XMS REPORT | Continuity of Care Document ---
:1960 External Reference #:[id number] Author Name Richar Heck MD, FACS (transmitted by agent of provider Lewis Naqvi) Address [address] [place] [address] Care Team Providers Name Role Phone Lizette Lott MD - Internal Care Team Information Major Donor Coordinator [phone] Medicine Problems Description No Information Available Social [...] Inj, Regadenoson, 0.1 MG Yo Cuevas, DO [facility] 01/15/2016 Injection Technetium TC 99M Yo Cuevas, DO [facility] 01/15/2016 Tetrofosmin, Per Unit Dose Up [...] Test Result H/L Range Note Leukemia/Lym 05/10/2019 [facility] Path Interpretation TNP phoma Flow [address] 2-8 [place] [address] [phone] Path Interpret 9-15 Marker (SEE NOTE) 1 Path Interpret > 16 Marker TNP Surgical 05/10/2019 [facility] Surgical SEE RESULT [address] Pathology BELOW [place], [place] [id number] [phone] PDFReport SEE IMAGE Laboratory test 05/03/2019 [facility] Point of Care 132 mg/dL High 70-[address] [place] [address] [phone] Leukemia/Lympho 04/27/2019 [facility] Path (SEE 4 ma Phen[address] Interpretation 2-8 NOTE) [place] [address] Marker [phone] Path Interpret 9-15 Marker TNP Path Interpret > 16 Marker TNP B-Cell Lymphoma 04/27/2019 [facility] FBLP Specimen Bone Marrow Fish [address] [place], [place] [id number] [phone] FBLP Reason for Referral See Comment 5 FBLP Method See Comment 6 FBLP Result Summary Normal FBLP Result See Comment 7 FBLP Result Table See Comment 8 FBLP Interpretation See Comment 9 FBLP Released By See Comment 10 FBLP Disclaimer See Comment 11 Bone Marrow 04/27/2019 [facility] BM Result Summary Normal Chromosomes [address] [place], [place] [id number] [phone] BM Chromosome Specimen Bone Marrow BM Referral Reason See Comment 12 BM Chromosome Method See Comment 13 BM Chromo Banding Method See Comment 14 BM Cromosome Results 46,XY[20] BM Chromosome Interpretation See Comment 15 Released By See Comment 16 CBC Auto 04/27/2019 [facility] White Blood 11.0 10^3/uL High 3.5-10.[address] [place] [address] [phone] Red Blood Count 5.22 10^6/uL Normal 4.18-5.48 [...] MD 05/15/19 1422 Technical component performed by: [place] [address] Tobacco Checkout Clerk: Amari Moore II, MD, PhD. 2 SEE RESULT BELOW Name: LEXIE ROCK : [address]: Richar Heck MD Acct: [id number] Unit: [id number] AGE: 59 Location: OR Re05/10/19 SEX: M Status: REG SD SPEC: [id number] ASHISH: 05/10/19- [facility] DR: Richar Heck MD REQ: [id number] RECD: 05/10/19 STATUS: SOUT _ ORDERED: LEVEL [...] CONTINUED ON NEXT PAGE DEPARTMENT OF PATHOLOGY, [address] [place] [id number] Charli Hall M.D. Director CLIA # [id number] These findings are definitively those of an [...] STUDIES Flow cytometry has been performed at [place], [place]. The testing reveals: FINAL DIAGNOSIS: Specimen [...] CONTINUED ON NEXT PAGE DEPARTMENT OF PATHOLOGY, [address] [place] [address] Charli Hall M.D. Director CLIA # [id number] Markers tested: CD3, CD5, CD7, CD10, CD19, [...] component performed by: [facility] [place] [id number] Tobacco Checkout Clerk: Amari Moore II, MD, PhD. PRE-OPERATIVE DIAGNOSIS Localized enlarged lymph nodes GROSS DESCRIPTION The specimen is received fresh labeled, Incisional Biopsy Lymph Node Right Groin, and consists of a 1.4 x 1.1 x 0.9 cm leigh-pink lymph node. The cut surface is glistening leigh-pink. A area representative section is submitted for flow cytometry. The remaining specimen is submitted in one cassette. Signed by and Reported on: Charli Hall MD 10/30 1428 END OF REPORT DEPARTMENT OF PATHOLOGY, [address] [place] [address] Charli Hall M.D. Director [facility] # [id number] 3 Magazine Hand: [id number] FINAL DIAGNOSIS: Specimen Source: Bone marrow [...] MD 05/01/19 0948 Technical component performed by: [address] [address] Tobacco Checkout Clerk: Amari Moore II, MD, PhD. 5 C82.13 [...] RESULT: Brianda Ramsey D.O. Test Performed by: [place] [address] Shape Hand: Amari Moore M.D. Ph.D.; CLIA# [id number] 11 Applicable to Analyte Specific Reagent (ASR) and Laboratory Developed Tests (LDT). This test was developed and its performance characteristics determined by [facility] in a manner consistent with CLIA requirements. [...] 20 0 2 Total 20 0 2 Elilson to Stain Name: GTL=G-banding; QFQ=Q-banding; DAPI=DAPI-staining; CBL=C-banding; AGNOR=Silver-staining; NON=Non-banded The sum of Cells Analyzed and Cells Counted equals the total cells examined. 15 No clonal abnormality was apparent. Additional cytogenetic studies are reported separately. 16 RESULT: Azalia Galicia M.D. Test Performed by: [place] [address] Shape Hand: Amari Moore M.D. Ph.D.; CLIA# [id number] Procedures Description No Information Available Medical Devices Description No Information Available Encounters Type Date Location Provider Dx Diagnosis Office Visit 05/[facility] Richar Heck MD, R59.0 Localized 9:15a Of [facility] FACS enlarged lymph nodes C82.13 Follicular lymphoma grade II, intra-abdominal lymph nodes Assessments Date Code Description Provider 05/19/2019 C82.13 Follicular lymphoma grade II, Richar Heck MD, FACS intra-abdominal lymph nodes 05/08/2019 R59.0 Localized enlarged lymph nodes Richar Heck MD, FACS 05/08/2019 C82.13 Follicular lymphoma grade II, Richar Heck MD, FACS intra-abdominal lymph nodes Plan of Treatment Future Appointment(s):06/05/2019 9:30 am - Richar Heck MD, FACS at [facility]05/26/2019 11:30 am - JESSICA Trevino at [facility]05/26/2019 11:30 am - Richar Heck MD, FACS at [facility]05/19/2019 - Richar Heck MD, FACSC82.13 Follicular lymphoma grade II, intra-abdominal lymph nodesRecommendations:PowerPort placement under local MAC anesthesia through same day surgery at [facility] Functional Status Description No Information Available Mental Status Description No Information Available Referrals Description No Information Available
--- NOTE | 2019-06-20 07:16 | ED ---
Complex/Multi-Sys Presentation - HPI Summary HPI Summary: This pt is a 59 y/o male presenting to [facility] c/o body aches and SOB since yesterday around 1430. Pt states he noticed white sores in his mouth this morning. Additionally pt reports he has a cough that he describes as mildly productive. Denies fever, abd pain, diarrhea, swelling in legs. Pt with hx of Non-hodgkins lymphoma and is followed up by Dr. Perdomo, oncologist. His first chemotherapy (and last one) was on 06/12/19. Pt states he called Dr. Perdomo's office and was recommended to come to the ED where they would meet him. - History Of Current Complaint Chief Complaint: EDShortnessOfBreath Time Seen by Provider: 06/20/19 07:06 Hx Obtained From: Patient Onset/Duration: Lasting Days - 1, Still Present Timing: Days - 1 Severity Currently: Moderate Location: Pain At: - body aches Aggravating Factor(s): nothing Alleviating Factor(s): nothing Associated Signs And Symptoms: Positive: SOB, Cough, Other - POSITIVE: body aches, white sores in mouth.. Negative: Edema, Diarrhea, Abdominal Pain, Fever - Allergies/Home Medications Allergies/Adverse Reactions: Allergies Allergy/AdvReac Type Severity Reaction Status Date / Time oxycodone Allergy Severe urine Verified 06/20/19 06:58 retention varenicline [From Chantix] Allergy Severe SUICIDAL Verified 06/20/19 06:58 THOUGHTS, NIGHTMARES Home Medications: Home Medications Acetaminophen TAB* [Tylenol TAB*] 325 mg PO Q4H PRN 06/20/19 [History Confirmed 06/20/19] Ondansetron TAB* [Zofran 4 MG Tab*] 4 mg PO Q4H PRN 06/20/19 [History Confirmed 06/20/19] Prochlorperazine 10 mg TAB [Compazine 10 mg TAB] 10 mg PO Q6H PRN 06/20/19 [ History Confirmed 06/20/19] PMH/Surg Hx/FS Hx/Imm Hx Endocrine/Hematology History: Reports: Hx Diabetes - Type 2 Cardiovascular History: Reports: Hx Coronary Artery Disease, Hx Hypertension, Other Cardiovascular Problems/Disorders - Hyperlipidemia Denies: Hx Pacemaker/ICD Respiratory History: Denies: Other Respiratory Problems/Disorders GI History: Denies: Other GI Disorders History: Reports: Hx Kidney Stones - RIGHT-06/2018-REPORTS PASSED Denies: Hx Renal Disease, Other Problems/Disorders Musculoskeletal History: Denies: Other Musculoskeletal History Sensory History: Reports: Hx Contacts or Glasses - GLASSES Denies: Hx Hearing Aid Opthamlomology History: Reports: Hx Contacts or Glasses - GLASSES Neurological History: Denies: Other Neuro Impairments/Disorders Psychiatric History: Denies: Hx Panic Disorder - Cancer History Cancer Type, Location and Year: TONGUE CANCER - SQUAMOUS CELL CARCINOMA. Non- Hodgkin's lymphoma Hx Chemotherapy: Yes - 2007 Chemo and radiation Hx Radiation Therapy: Yes - Surgical History Surgical History: Yes Surgery Procedure, Year, and Place: TEMPORARY FEEDING TUBE - 2007 - DUE TO TONGUE CANCER - SQUAMOUS CELL CARCINOMA. REMOVED. 2015-CAROTID BYPASS- [place]. Lymph Node Biopsy 05/02 Hx Anesthesia Reactions: No Infectious Disease History: No Infectious Disease History: Denies: Traveled Outside the [place] in Last 30 Days - Family History Known Family History: Positive: Hypertension - Social History Alcohol Use: None Substance Use Type: Reports: None Hx Tobacco Use: Yes Smoking Status (MU): Heavy Every Day Tobacco Smoker Type: Cigarettes Amount Used/How Often: 0.5-1 PPD X 44 YEARS Have You Smoked in the Last Year: Yes Review of Systems Negative: Fever ENT: Other - POSITIVE: white sores in mouth Positive: Shortness Of Breath, Cough Negative: Abdominal Pain, Diarrhea Positive: Myalgia. Negative: Edema All Other Systems Reviewed And Are Negative: Yes Physical Exam - Summary Physical Exam Summary: VITAL SIGNS: Reviewed. GENERAL: Patient is a well-developed and nourished male who is lying comfortable in the stretcher. Patient is not in any acute respiratory distress. HEAD AND FACE: No signs of trauma. No ecchymosis, hematomas or skull depressions. No sinus tenderness. EYES: PERRLA, EOMI x 2, No injected conjunctiva, no nystagmus. EARS: Hearing grossly intact. Ear canals and tympanic membranes are within normal limits. MOUTH: Oropharynx within normal limits. Thrush. NECK: Supple, trachea is midline, no adenopathy, no JVD, no carotid bruit, no c- spine tenderness, neck with full ROM. CHEST: Symmetric, no tenderness at palpation. LUNGS: Crackles in both bases of the lungs. CVS: Regular rate and rhythm, S1 and S2 present, no murmurs or gallops appreciated. ABDOMEN: Soft, non-tender. No signs of distention. No rebound, no guarding, and no masses palpated. Bowel sounds are normal. EXTREMITIES: FROM in all major joints, no edema, no cyanosis or clubbing. NEURO: Alert and oriented x 3. No acute neurological deficits. Speech is normal and follows commands. SKIN: Dry and warm. Triage Information Reviewed: Yes Vital Signs On Initial Exam: Initial Vitals Temp Pulse Resp BP Pulse Ox 99 F 93 22 155/79 92 06/20/19 06:56 06/20/19 06:56 06/20/19 06:56 06/20/19 06:56 06/20/19 06:56 Vital Signs Reviewed: Yes Procedures - Sedation Patient Received Moderate/Deep Sedation with Procedure: No Diagnostics - Vital Signs Vital Signs Temp Pulse Resp BP Pulse Ox 06/20/19 06:56 99 F 93 22 155/79 92 - Laboratory Result Diagrams: 06/20/19 07:30 06/20/19 07:30 Lab Statement: Any lab studies that have been ordered have been reviewed, and results considered in the medical decision making process. - Radiology Chest XR Radiology Interpretation Completed By: Radiologist Summary of Radiographic Findings: IMPRESSION: Findings consistent with left lower lobe pneumonia. Dr. Zuniga has reviewed this report. - EKG 07:17 Cardiac Rate: NL - at 98 bpm EKG Rhythm: Sinus Rhythm Summary of EKG Findings: EKG at 0717 shows normal sinus rhythm at a rate of [address] elevations. Normal axis. 09:25 Cardiac Rate: NL - at 93 bpm EKG Rhythm: Sinus Rhythm Summary of EKG Findings: EKG at 0925 shows normal sinus rhythm at a rate of [address] elevations. Re-Evaluation - Re-Evaluation First Eval Re-Evaluation Time: 10:12 Comment: Madhuri Rios, oncology FINANCIAL INVESTIGATOR, reports patient is refusing admission and will sign out against medical advice. Second Eval Re-Evaluation Time: 10:29 Comment: Patient signed the AMA form. Risks of leaving AMA were discussed. Complex Multi-Symp Course/Dx Assessment/Plan: This pt is a 59 y/o male presenting to [facility] c/o body aches and SOB since yesterday around 1430. Pt states he noticed white sores in his mouth this morning. Additionally pt reports he has a cough that he describes as mildly productive. Denies fever, abd pain, diarrhea, swelling in legs. Pt with hx of Non-hodgkins lymphoma and is followed up by Dr. Perdomo, oncologist. His first chemotherapy (and last one) was on 06/12/19. Pt states he called Dr. Perdomo's office and was recommended to come to the ED where they would meet him. Patient's blood work without any significant abnormality except for hemoglobin of 12.2 and hematocrit 34. Potassium level is 134, glucose 176, calcium 8.5, two troponins 0.03; 4 hours apart, CRP 100.4, BNP 204. Urinalysis is negative for UTI. Chest x-ray impression, findings consistent with a left lower lobe pneumonia. In the ED course the patient was given Rocephin and azithromycin. Patient was also given Mycelex for the thrush, and aspirin for increased troponin. I discussed my physical exam and findings with Dr. Tomlinson from oncology and he accepted the patient for admission. I was informed by the nurse that the patient refuses to be admitted to the hospital. Agatha Rios, nurse practitioner from Dr. Tomlinson's services, came and discussed the findings and test results with the patient. He did not accept the admission. The patient understands the severity of the symptoms and diagnosis. He reports that he wants to leave against medical advice. I extensively discussed with the patient the benefits and risk of leaving AMA. I also discussed the alternatives to leaving AMA, however, the patient still insists to leave the hospital AMA. The patient is clinically sober, free from distracting injury, appears to have intact insight and judgment and reason and in my opinion has the capacity to make decisions. Patient has full capacity and is cognitively intact. The patient presents with chest pain, shortness of breath, productive cough and thrush, I have explained that I am concerned with those symptoms and may represent pneumonia, sepsis, acute coronary syndrome, and . The patient verbalizes understanding of my concerns. I have also explained the results of the labs that are abnormal. The primary nurse and the charge nurse also strongly recommended that the patient should not leave AMA. Patient understands the risks of leaving AMA, which includes but is not restricted to . Patient signed the AMA form. Patient was also advised to return to the ED if he changes his mind or if the symptoms worsen or other symptoms appear. Patient understands and agrees. Again, I discussed all the findings and test results with the patient. Patient was instructed to return to the emergency room immediately if any of the symptoms return or worsen. Plan of care was discussed with the patient and understands and agrees. All questions were answered at patient satisfaction. There were no further complaints or concerns. Patient signed AMA and he was discharged AMA. - Diagnoses Differential Diagnoses/HQI/PQRI: Cardiac Ischemia, Metabolic Abnormality, Sepsis , Urinary Tract Infection Provider Diagnoses: Pneumonia, Thrush, Elevated troponin, Chest pain - Physician Notifications Discussed Care Of Patient With: Bharathi Tomlinson Time Discussed With Above Provider: 09:24 Instructed by Provider To: Other - Discussed case with Dr. Tomlinson, oncologist, who accepts patient for admission. Discharge ED - Sign-Out/Discharge Documenting (check all that apply): Patient Departure - AMA - Discharge Plan Condition: Stable Disposition: AGAINST MEDICAL ADVICE Prescriptions: Albuterol HFA INHALER* [Ventolin HFA Inhaler*] 2 puff INH Q4H PRN #1 mdi PRN Reason: Shortness Of Breath Azithromyxin SOUTH (NF) [Z-South (Zithromax) 250 mg tabs #6] 2 tab PO .TODAY, THEN 1 DAILY #6 tab Clotrimazole RENATA* [Mycelex Renata*] 10 mg MT SEE INSTRUCTIONS 50 Days renata Clotrimazole RENATA* [Mycelex Renata*] 10 mg MT SEE INSTRUCTIONS #50 renata Levofloxacin TAB* [Levaquin TAB*] 750 mg PO DAILY #13 tab Referrals: Lizette Lott MD [Primary Care Provider] - - Billing Disposition and Condition Condition: STABLE Disposition: Against Medical Advice - Attestation Statements Document Initiated by Scribe: Yes Documenting Scribe: Amna Yeung Provider For Whom Ruperto is Documenting (Include Credential): Roger Zuniga MD Scribe Attestation: Amna Shipley, scribed for Roger Zuniga MD on 06/20/19 at 1835. Scribe Documentation Reviewed: Yes Provider Attestation: The documentation as recorded by the Amna roach accurately reflects the service I personally performed and the decisions made by me, Roger Zuniga MD Status of Scribe Document: Viewed
[2019-06-20 07:50] LABS: Hematocrit 34 % (42-52); Hemoglobin 12.2 g/dL (14.0-18.0); Mean Corpuscular HGB Conc 35 g/dL (31-36); Mean Corpuscular Hemoglobin 30 pg (27-31); Mean Corpuscular Volume 85 fL (80-94); Mean Platelet Volume 8.6 fL (7.4-10.4); Platelet Count 154 10^3/uL (150-450); Red Blood Count 4.07 10^6 /uL (4.18-5.48); Red Cell Distribution Width 14 % (10-15); White Blood Count 4.5 10^3/uL (3.5-10.8)
[2019-06-20 08:07] LABS: ALT 8 U/L (7-52); AST 8 U/L (13-39); Albumin 3.8 g/dL (3.2-5.2); Albumin/Globulin Ratio 1.7 (1-3); Alkaline Phosphatase 96 U/L (34-104); Anion Gap 8 mmol/L (2-11); Blood Urea Nitrogen 12 mg/dL (6-24); C Reactive Protein 100.48 mg/L (<8.01); CO2 Carbon Dioxide 23 mmol/L (22-32); Calcium 8.5 mg/dL (8.6-10.3); Chloride 103 mmol/L (101-111); EGFR African American 109.4 (>60); EGFR Non-African American 90.4 (>60); Globulin 2.2 g/dL (2-4); Glucose 176 mg/dL (70-100); Potassium 3.5 mmol/L (3.5-5.0); Sodium 134 mmol/L (135-145)
[2019-06-20 08:12] LABS: CKMB ng/mL 1.3 ng/mL (0.6-6.3); Troponin I 0.03 ng/mL (<0.03)
[2019-06-20 08:20] LABS: Urine Appearance Clear; Urine Bilirubin Negative (Negative); Urine Blood Negative (Negative); Urine Color Yellow; Urine Glucose Negative (Negative); Urine Ketones Negative (Negative); Urine Nitrite Negative (Negative); Urine Protein Negative (Negative); Urine Specific Gravity 1.009 (1.010-1.030); Urine Urobilinogen Negative (Negative)
[2019-06-20 08:36] LABS: ABS Eosinophils 0.1 10^3/ul (0-0.6); ABS Lymphocytes 0.7 10^3/ul (1.0-4.8); ABS Monocytes 0.9 10^3/ul (0-0.8); ABS Neutrophils 2.8 10^3/ul (1.5-7.7); Eosinophil % 1.7 %; Lymphocyte % 15.6 %; Nucleated Red Blood Cells % 0.1
[2019-06-20] MEDS ORDERED: cefTRIAXone(*) 1 GM in NS 0.9% 50 ML* 50 ML IVPB ONE (08:53)
[2019-06-20] MEDS ORDERED: Aspirin 81 mg CHEW TAB* 81 MG TAB.CHEW PO ONE (09:06)
[2019-06-20] MEDS ORDERED: Azithromycin 500 mg/250 ml NS 500 MG/250 ML BAG IVPB ONE (09:25)
[2019-06-20] MEDS ORDERED: Clotrimazole TROCHE* 10 MG TROCHE PO ONE (09:27)
[2019-06-20 10:21] VITALS: BP 112/65
--- NOTE | 2019-06-20 10:29 | PN ---
Progress Note - Progress Note Date of Service: 06/20/19 SOAP: Subjective: []Called this on-call provider this AM with white spots on tongue and increased WOB, instructed to go to ER. Presented to the ER SOB and found to hbe hypoxic with LLL pneumonia. Mr. Rock is a long time, active, smoker with recently diagnosed follicular lymphoma s/p C1 RCHOP on 06/12/19 with neulasta support. He tells me the on-call provider said they would meet him here, "And four hours later you're here..." He states he has been hypoxic before, "I was in the 70s. " and that he does NOT use home O2 and denies any diagnosis of COPD. He tells me he will NOT stay in the hospital despite concern for his respiratory and cardiac condition. His presented to the room shortly after the discussion regarding admission and I reviewed the findings of LLL pneumonia with acute respiratory failure and concern for demand ischemia with elevated troponin. Despite his voicing concern and agreement with observation as inpatient Mr. Rock adamantly refused admission stating understanding of the associated risk for related to respiratory failure and possible cardiovascular events. He states he wants to leave AMA. "I'm fine. I'll be fine." Home Medications Medication Instructions Recorded Confirmed Type Aspirin TAB* [Aspirin 325 MG TAB*] 325 mg PO QAM 03/15/17 06/20/19 History Atorvastatin* [Lipitor 80 MG*] 80 mg PO QAM 03/15/17 06/20/19 History Clopidogrel TAB* [Plavix TAB*] 75 mg PO QAM 03/15/17 06/20/19 History metFORMIN* [Glucophage 500 MG TAB 500 mg PO TID 08/05/18 06/20/19 History *] Acetaminophen TAB* [Tylenol TAB*] 325 mg PO Q4H PRN 06/20/19 06/20/19 History Ondansetron TAB* [Zofran 4 MG Tab*] 4 mg PO Q4H PRN 06/20/19 06/20/19 History Prochlorperazine 10 mg TAB 10 mg PO Q6H PRN 06/20/19 06/20/19 History [Compazine 10 mg TAB] Objective: [] Vital Signs Temp Pulse Resp BP Pulse Ox 99 F 97 33 112/65 91 06/20/19 06:56 06/20/19 10:00 06/20/19 07:09 06/20/19 09:39 06/20/19 10:00 A&Ox3, EOMI, neuro grossly non-focal HRR, tachy, tele ST LS dim. bases L>R, no crackles noted, tacypnea with notable Dyspnea during conversation - O2 SAT 90% on 3L and then 86% on RA with pt. taking O2 off and refusing replacement Laboratory Results - last 24 hr 06/20/19 06/20/19 06/20/19 07:30 07:30 07:30 WBC 4.5 RBC 4.07 L Hgb 12.2 L Hct 34 L MCV 85 MCH 30 MCHC 35 RDW 14 Plt Count 154 MPV 8.6 Neut % (Auto) 62.7 Lymph % (Auto) 15.6 [place] % (Auto) 19.4 Eos % (Auto) 1.7 Baso % (Auto) 0.6 Absolute Neuts (auto) 2.8 Absolute Lymphs (auto) 0.7 L Absolute Monos (auto) 0.9 H Absolute Eos (auto) 0.1 Absolute Basos (auto) 0.0 Absolute Nucleated RBC 0.0 Immature Gran % 8.0 Neutrophils % 57.0 Band Neutrophils % 6.0 Lymphocytes % 19.0 Monocytes % 15.0 Basophils % 1.0 Myelocytes % 2.0 H Nucleated RBC % 0.1 Toxic Granulation 1+ Dohle Bodies Present Normal RBC Morphology Normal Sodium 134 L Potassium 3.5 Chloride 103 Carbon Dioxide 23 Anion Gap 8 BUN 12 Creatinine 0.86 Est GFR ( Amer) 109.4 Est GFR (Non-Af Amer) 90.4 BUN/Creatinine Ratio 14.0 Glucose 176 H Lactic Acid 1.5 Calcium 8.5 L Total Bilirubin 0.40 AST 8 L ALT 8 Alkaline Phosphatase 96 CK-MB (CK-2) 1.3 Troponin I 0.03 H* C-Reactive Protein 100.48 H B-Natriuretic Peptide Total Protein 6.0 L Albumin 3.8 Globulin 2.2 Albumin/Globulin Ratio 1.7 Urine Color Urine Appearance Urine pH Ur Specific [place] Urine Protein Urine Ketones Urine Blood Urine Nitrate Urine Bilirubin Urine Urobilinogen Ur Leukocyte Esterase Urine Glucose 06/20/19 06/20/19 07:30 08:07 WBC RBC Hgb Hct MCV MCH MCHC RDW Plt Count MPV Neut % (Auto) Lymph % (Auto) [place] % (Auto) Eos % (Auto) Baso % (Auto) Absolute Neuts (auto) Absolute Lymphs (auto) Absolute Monos (auto) Absolute Eos (auto) Absolute Basos (auto) Absolute Nucleated RBC Immature Gran % Neutrophils % Band Neutrophils % Lymphocytes % Monocytes % Basophils % Myelocytes % Nucleated RBC % Toxic Granulation Dohle Bodies Normal RBC Morphology Sodium Potassium Chloride Carbon Dioxide Anion Gap BUN Creatinine Est GFR ( Amer) Est GFR (Non-Af Amer) BUN/Creatinine Ratio Glucose Lactic Acid Calcium Total Bilirubin AST ALT Alkaline Phosphatase CK-MB (CK-2) Troponin I C-Reactive Protein B-Natriuretic Peptide 204 H Total Protein Albumin Globulin Albumin/Globulin Ratio Urine Color Yellow Urine Appearance Clear Urine pH 6.0 Ur Specific [place] 1.009 L Urine Protein Negative Urine Ketones Negative Urine Blood Negative Urine Nitrate Negative Urine Bilirubin Negative Urine Urobilinogen Negative Ur Leukocyte Esterase Negative Urine Glucose Negative Assessment: []59 yo male with recently diagnosed follicular lymphoma presenting on day 9 of cycle 1 R-CHOP with acute respiratory failure secondary to large left lower lobe community acquired pneumonia. He is refusing admission and will sign out AMA with a clear understanding of his risk for potential respiratory failure, cardiovascular failure, and . I have advised him at length to return to the ER with any progressive respiratory distress, chest pain or pressure, or worrisome symptoms. He states clear understanding of the risks related to refusing admission. Plan: []- Levaquin 750 mg PO daily x13 days starting 06/21/19 - Azithromycin 500 mg PO now followed by 250 mg daily starting 06/21/19 x4 days - Clotrimazole renata 10 mg dissolved 5x/day x14 days - Albuterol inhaler, 2 puffs q4hrs PRN SOB Pt. to return to outpatient cancer clinic tomorrow @ 1230 for labs and re- assessment
[2019-06-20 10:52] LABS: Troponin I 0.03 ng/mL (<0.03)
[2019-06-20 11:30] LABS: Erythrocyte Sed Rate 10 mm/Hr (0-19)
== END 2019-06-20 10:43 | disposition left against medical advice (07) ==
LOC: ED 06:55
DX: J18.9 Pneumonia, unspecified organism (principal); R07.89 Other chest pain; R79.89 Other specified abnormal findings of blood chemistry; B37.0 Candidal stomatitis; Z85.72 Personal history of non-Hodgkin lymphomas; E11.9 Type 2 diabetes mellitus without complications; Z79.84 Long term (current) use of oral hypoglycemic drugs; I25.10 Atherosclerotic heart disease of native coronary artery without angina pectoris; I10 Essential (primary) hypertension; E78.5 Hyperlipidemia, unspecified; Z88.5 Allergy status to narcotic agent; Z88.8 Allergy status to other drugs, medicaments and biological substances; F17.210 Nicotine dependence, cigarettes, uncomplicated
CPT/HCPCS: 36415; 71046; 80053; 81003; 82553; 83605; 83880; 84484; 85025; 85060; 85652; 86140; 87040; 87899; 93005; 99284; A9270-GY; J0696

== ENCOUNTER 2019-10-02 14:34 | Emergency (ER) | payer BC, OTHER ==
[2019-10-02] MEDS ORDERED: Lactated Ringers 1000 ML Bag* 1,000 ML IV.FLUID IV ONE (15:02)
--- NOTE | 2019-10-02 15:04 | ED ---
Respiratory - History of Current Complaint Chief Complaint: EDShortnessOfBreath Stated Complaint: COUGH, SOB PER PT Time Seen by Provider: 10/02/19 15:02 Pain Intensity: 0 - Allergy/Home Medications Allergies/Adverse Reactions: Allergies Allergy/AdvReac Type Severity Reaction Status Date / Time oxycodone Allergy Severe urine Verified 06/20/19 06:58 retention varenicline [From Chantix] Allergy Severe SUICIDAL Verified 06/20/19 06:58 THOUGHTS, NIGHTMARES lisinopril AdvReac Coughing Verified 06/21/19 14:31 Home Medications: Home Medications Aspirin TAB* [Aspirin 325 MG TAB*] 325 mg PO QAM 03/15/17 [History Confirmed 01/31] Atorvastatin* [Lipitor 80 MG*] 80 mg PO QAM 03/15/17 [History Confirmed 06/21/19 ] Clopidogrel TAB* [Plavix TAB*] 75 mg PO QAM 03/15/17 [History Confirmed 06/21/19 ] metFORMIN* [Glucophage 500 MG TAB *] 1,500 mg PO DAILY 08/05/18 [History Confirmed 06/21/19] Acetaminophen TAB* [Tylenol TAB*] 325 mg PO Q4H PRN 06/20/19 [History Confirmed 06/21/19] Prochlorperazine 10 mg TAB [Compazine 10 mg TAB] 10 mg PO Q6H PRN 06/20/19 [ History Confirmed 06/21/19] Azithromycin TAB* 500 mg PO DAILY #0 06/22/19 [Rx Confirmed 06/21/19] Cefdinir [Cefdinir 300 MG CAP] 300 mg PO BID #0 06/22/19 [Rx Confirmed 06/21/19] GuaiFENesin DM 100 mg/10 mg [Robitussin DM 100 mg/10 mg in 5 ml] 10 ml PO Q4H PRN udc 06/22/19 [Rx] Metoprolol Succinate XL TAB* [Toprol XL TAB*] 25 mg PO DAILY #30 tab.xl [Rx] Nicotine PATCH 21 MG/24 HR* 1 patch TRANSDERM DAILY patch 06/22/19 [Rx] Levofloxacin TAB* [Levaquin TAB*] 500 mg PO DAILY #14 tab 07/10/19 [Rx] PMH/Surg Hx/FS Hx/Imm Hx Endocrine/Hematology History: Reports: Hx Diabetes - Type 2 Cardiovascular History: Reports: Hx Coronary Artery Disease, Hx Hypertension, Other Cardiovascular Problems/Disorders - Hyperlipidemia Denies: Hx Pacemaker/ICD Respiratory History: Denies: Other Respiratory Problems/Disorders GI History: Denies: Other GI Disorders History: Reports: Hx Kidney Stones - RIGHT-06/2018-REPORTS PASSED Denies: Other Problems/Disorders Musculoskeletal History: Denies: Other Musculoskeletal History Sensory History: Reports: Hx Contacts or Glasses - GLASSES Opthamlomology History: Reports: Hx Contacts or Glasses - GLASSES Neurological History: Denies: Other Neuro Impairments/Disorders - Cancer History Cancer Type, Location and Year: TONGUE CANCER - SQUAMOUS CELL CARCINOMA. Non- Hodgkin's lymphoma Hx Chemotherapy: Yes - 2007 Chemo and radiation Hx Radiation Therapy: Yes - Surgical History Surgical History: Yes Surgery Procedure, Year, and Place: TEMPORARY FEEDING TUBE - 2007 - DUE TO TONGUE CANCER - SQUAMOUS CELL CARCINOMA. REMOVED. 2016-CAROTID BYPASS- [facility]. Lymph Node Biopsy 05/02 Hx Anesthesia Reactions: No Infectious Disease History: No Infectious Disease History: Denies: Traveled Outside the [place] in Last 30 Days - Family History Known Family History: Positive: Hypertension - Social History Alcohol Use: None Substance Use Type: Reports: None Hx Tobacco Use: Yes Smoking Status (MU): Heavy Every Day Tobacco Smoker Type: Cigarettes Amount Used/How Often: 0.5-1 PPD X 44 YEARS Have You Smoked in the Last Year: Yes Physical Exam - Summary Physical Exam Summary: Constitutional: Well-developed, Well-nourished, Alert. (-) Distressed Skin: Warm, Dry HENT: Normocephalic; Atraumatic Eyes: Conjunctiva normal Neck: Musculoskeletal ROM normal neck. (-) JVD, (-) Stridor, (-) Nuchal rigidity Cardio: Rhythm regular, rate normal, Heart sounds normal; Intact distal pulses; Radial pulses are 2+ and symmetric. (-) Murmur Pulmonary/Chest wall: Effort normal. (-) Respiratory distress, (-) Wheezes, (-) Rales Abd: Soft, (-) tenderness, (-) Distension, (-) Guarding, (-) Rebound Musculoskeletal: (-) Edema Lymph: (-) Cervical adenopathy Neuro: Alert, Oriented x3 Psych: Mood and affect Normal Triage Information Reviewed: Yes Vital Signs On Initial Exam: Initial Vitals Temp Pulse Resp BP Pulse Ox 97.7 F 78 22 89/62 94 10/02/19 14:53 10/02/19 14:53 10/02/19 14:53 10/02/19 14:53 10/02/19 14:53 Vital Signs Reviewed: Yes Procedures - Sedation Patient Received Moderate/Deep Sedation with Procedure: No Diagnostics - Vital Signs Vital Signs Temp Pulse Resp BP Pulse Ox 10/02/19 14:53 97.7 F 78 22 89/62 94 - Laboratory Lab Statement: Any lab studies that have been ordered have been reviewed, and results considered in the medical decision making process. Discharge ED - Discharge Plan Referrals: Lizette Lott MD [Primary Care Provider] - - Attestation Statements Document Initiated by Scribe: Yes Documenting Scribe: Elodia Elizabeth Provider For Whom Scribe is Documenting (Include Credential): Luis Eduardo Salgado MD Scribe Attestation: Elodia Shipley, scribed for Luis Eduardo Salgado MD on 10/02/19 at 1504.
[2019-10-02] MEDS ORDERED: cefTRIAXone(*) 1 GM in NS 0.9% 50 ML* 50 ML IVPB ONE (15:22)
[2019-10-02] MEDS ORDERED: Azithromycin 500 mg/250 ml NS 500 MG/250 ML BAG IVPB ONE (15:22)
--- NOTE | 2019-10-02 15:30 | ED ---
Shortness of Breath - HPI Summary HPI Summary: 59-year-old male presents with shortness of breath and cough for the past 3 days. He states he feels like he has had pneumonia in the past. Denies any fevers. He has not been around anyone who is sick. Has been having his last chemo treatment on . He is patient of Dr. Perdomo. He admits to history of diabetes and was placed on insulin as his sugars have been elevated. He admits to being very weak and fatigued. He admits to decrease in appetite. No nausea or vomiting. No urinary symptoms. no diarrhea or constipation. He admits to chest pain across chest. pain feels like an ache. He has history of non- Hodgkin lymphoma. - History of Current Complaint Chief Complaint: EDShortnessOfBreath Time Seen by Provider: 10/02/19 15:02 - Allergy/Home Medications Allergies/Adverse Reactions: Allergies Allergy/AdvReac Type Severity Reaction Status Date / Time oxycodone Allergy Severe urine Verified 06/20/19 06:58 retention varenicline [From Chantix] Allergy Severe SUICIDAL Verified 06/20/19 06:58 THOUGHTS, NIGHTMARES lisinopril AdvReac Coughing Verified 06/21/19 14:31 Home Medications: Home Medications Aspirin TAB* [Aspirin 325 MG TAB*] 325 mg PO QAM 03/15/17 [History Confirmed ] Atorvastatin* [Lipitor 80 MG*] 80 mg PO QAM 03/15/17 [History Confirmed 10/02/19 ] Clopidogrel TAB* [Plavix TAB*] 75 mg PO QAM 03/15/17 [History Confirmed 10/02/19 ] Acetaminophen TAB* [Tylenol TAB*] 325 mg PO Q4H PRN 06/20/19 [History Confirmed 10/02/19] Prochlorperazine 10 mg TAB [Compazine 10 mg TAB] 10 mg PO Q6H PRN 06/20/19 [ History Confirmed 10/02/19] Metoprolol Succinate XL TAB* [Toprol XL TAB*] 25 mg PO DAILY #30 tab.xl [Rx Confirmed 10/02/19] Insulin Glargine,Hum.rec.anlog [Lantus Solostar 100 units/ml 3 ml x 5 PENS] 20 units SUBCUT QAM 10/02/19 [History Confirmed 10/02/19] Levofloxacin TAB* [Levaquin TAB*] 750 mg PO DAILY #6 tab 10/02/19 [Rx] Magnesium Oxide TAB* [MagOx 400 TAB*] 800 mg PO BID 10/02/19 [History Confirmed 10/02/19] Ondansetron TAB* [Zofran 4 MG Tab*] 4 mg PO QID PRN 10/02/19 [History Confirmed 10/02/19] metFORMIN* [Glucophage 500 MG TAB *] 500 mg PO TID 10/02/19 [History Confirmed 10/02/19] PMH/Surg Hx/FS Hx/Imm Hx Endocrine/Hematology History: Reports: Hx Diabetes - Type 2 Cardiovascular History: Reports: Hx Coronary Artery Disease, Hx Hypertension, Other Cardiovascular Problems/Disorders - Hyperlipidemia Denies: Hx Pacemaker/ICD Respiratory History: Denies: Other Respiratory Problems/Disorders GI History: Denies: Other GI Disorders History: Reports: Hx Kidney Stones - RIGHT-06/2018-REPORTS PASSED Denies: Other Problems/Disorders Musculoskeletal History: Denies: Other Musculoskeletal History Sensory History: Reports: Hx Contacts or Glasses - GLASSES Opthamlomology History: Reports: Hx Contacts or Glasses - GLASSES Neurological History: Denies: Other Neuro Impairments/Disorders - Cancer History Cancer Type, Location and Year: TONGUE CANCER - SQUAMOUS CELL CARCINOMA. Non- Hodgkin's lymphoma Hx Chemotherapy: Yes - 2007 Chemo and radiation Hx Radiation Therapy: Yes - Surgical History Surgery Procedure, Year, and Place: TEMPORARY FEEDING TUBE - 2007 - DUE TO TONGUE CANCER - SQUAMOUS CELL CARCINOMA. REMOVED. 2015-CAROTID BYPASS- [place]. Lymph Node Biopsy 05/02 Hx Anesthesia Reactions: No Infectious Disease History: No Infectious Disease History: Denies: Traveled Outside the [place] in Last 30 Days - Family History Known Family History: Positive: Hypertension - Social History Alcohol Use: None Substance Use Type: Reports: None Hx Tobacco Use: Yes Smoking Status (MU): Heavy Every Day Tobacco Smoker Type: Cigarettes Amount Used/How Often: 0.5-1 PPD X 44 YEARS Have You Smoked in the Last Year: Yes Review of Systems Negative: Fever Positive: Chest Pain Positive: Shortness Of Breath, Cough Negative: Abdominal Pain All Other Systems Reviewed And Are Negative: Yes Physical Exam Triage Information Reviewed: Yes Vital Signs On Initial Exam: Initial Vitals Temp Pulse Resp BP Pulse Ox 97.7 F 78 22 89/62 94 10/02/19 14:53 10/02/19 14:53 10/02/19 14:53 10/02/19 14:53 10/02/19 14:53 Vital Signs Reviewed: Yes Appearance: Positive: Well-Appearing Skin: Positive: Warm, Dry Head/Face: Positive: Normal Head/Face Inspection Eyes: Positive: Normal, Conjunctiva Clear Respiratory/Lung Sounds: Positive: Decreased Breath Sounds, Rhonchi Cardiovascular: Positive: Normal, RRR Abdomen Description: Positive: Nontender, Soft Bowel Sounds: Positive: Present Musculoskeletal: Positive: Normal Neurological: Positive: Normal Psychiatric: Positive: Normal Procedures - Sedation Patient Received Moderate/Deep Sedation with Procedure: No Diagnostics - Vital Signs Vital Signs Temp Pulse Resp BP Pulse Ox 10/02/19 14:53 97.7 F 78 22 89/62 94 - Laboratory Result Diagrams: 10/02/19 16:15 10/02/19 16:15 Lab Statement: Any lab studies that have been ordered have been reviewed, and results considered in the medical decision making process. - Radiology chest Radiology Interpretation Completed By: Radiologist Summary of Radiographic Findings: WORSENING AIRSPACE OPACIFICATIONS ABOVE. - EKG No standard instances Cardiac Rate: NL EKG Rhythm: Sinus Rhythm EKG Comparison: No Significant Change Summary of EKG Findings: sinus rhythm Re-Evaluation - Re-Evaluation First Eval Re-Evaluation Time: 16:37 Comment: is hypoxic at 88 Second Eval Re-Evaluation Time: 17:40 Comment: patient states does not want to stay here anymore, wants to go home. discussed troponin is elevated at .09, chest xray is worst than previous and should be admitted. patient is adamant that wants to go home. understands that could and states would rather at home then in this place and everyone is incompetent. discussed risks vs benefit and patient would rather go home. patient will sign out AMA. Course/Dx - Course Course Of Treatment: 59-year-old male presents with shortness of breath and cough for the past 3 days. He states he feels like he has had pneumonia in the past. Denies any fevers. He has not been around anyone who is sick. Has been having his last chemo treatment on last Wednesday. He is patient of Dr. Perdomo. He admits to history of diabetes and was placed on insulin as his sugars have been elevated. He admits to being very weak and fatigued. He admits to decrease in appetite. No nausea or vomiting. No urinary symptoms. no diarrhea or constipation. He admits to chest pain across chest. pain feels like an ache. He has history of non-Hodgkin lymphoma. On exam decreased breath sounds with rhonchi noted. ekg sinus rhythm. wbc 12. patient became hypoxic while in ED requiring oxygen. troponin .09 which has had before when had pnuemonia. chest xray shows worsening airspace opacification. discussed results with patient and patient is becoming more agitated about with the system and how long things are taken. as patient has sob and cough will treat as potential covid patient on isolation precautions so lab work and imaging did take longer. discussed that troponin is elevated and this signifies heart damage so admission is warranted. patient understands that should be admitted but per patient he does not like this hospital and would rather to home. offered to give IV antibioitics but patient does not want to stay and wants to leave now so gave PO antibiotics. patient understands the risk of going home and signed out AMA. patient is alert and oriented and able to make informed decision. will prescribe levaquin and told to follow up with oncology. told patient if anything worsens to return. - Diagnoses Differential Diagnosis/HQI/PQRI: Positive: Bronchitis, Pneumonia, Pulmonary Embolism Provider Diagnoses: Pneumonia - Critical Care Time Critical Care Statement: Critical care time is provided exclusive of any time spent performing procedures. Discharge ED - Sign-Out/Discharge Documenting (check all that apply): Patient Departure - Discharge Plan Condition: Guarded Disposition: AGAINST MEDICAL ADVICE Prescriptions: Levofloxacin TAB* [Levaquin TAB*] 750 mg PO DAILY #6 tab Patient Education Materials: Pneumonia (ED) Forms: COVID-19 Tested & Isolation Referrals: Lizette Lott MD [Primary Care Provider] - Additional Instructions: Take Levaquin once a day for 6 more days You have been tested for coronavirus. The department of health will contact you with results when available and with any additional instruction. You should stay in your house and self quarantine. You should wear a mask if you're outside of your personal room. We encourage handwashing as well as limited contact with other people. Use tyenlol every 6 hours for fever Drink plenty of fluids and rest follow up with oncology within 3 days Return to ED if develop shortness of breath or any new or worsening symptoms - Billing Disposition and Condition Condition: GUARDED Disposition: Against Medical Advice - Attestation Statements Provider Attestation: I was available for consultation for this patient. I did not evaluate the patient or participate in any medical decision making or disposition decisions unless I am specifically named in the chart as having consulted on the patient. If I have consulted on the patient, please see my own ED note on the patient encounter. Luis Eduardo Salgado MD
[2019-10-02] MEDS ORDERED: NS 0.9% IV ONE (15:34)
[2019-10-02 16:36] LABS: Hematocrit 30 % (42-52); Hemoglobin 10.3 g/dL (14.0-18.0); Mean Corpuscular HGB Conc 34 g/dL (31-36); Mean Corpuscular Hemoglobin 30 pg (27-31); Mean Corpuscular Volume 88 fL (80-94); Mean Platelet Volume 8.4 fL (7.4-10.4); Platelet Count 176 10^3/uL (150-450); Red Blood Count 3.43 10^6 /uL (4.18-5.48); Red Cell Distribution Width 17 % (10-15); White Blood Count 12.1 10^3/uL (3.5-10.8)
[2019-10-02 16:53] LABS: Activated Partial Thrombo Time 33.1 seconds (26.0-38.0); INR 1.06 (0.82-1.09)
[2019-10-02 16:54] LABS: ALT 6 U/L (7-52); AST 7 U/L (13-39); Albumin 3.7 g/dL (3.2-5.2); Albumin/Globulin Ratio 1.5 (1-3); Alkaline Phosphatase 187 U/L (34-104); Anion Gap 8 mmol/L (2-11); Blood Urea Nitrogen 21 mg/dL (6-24); CO2 Carbon Dioxide 24 mmol/L (22-32); Calcium 9.4 mg/dL (8.6-10.3); Chloride 103 mmol/L (101-111); EGFR African American 112.4 (>60); EGFR Non-African American 92.9 (>60); Globulin 2.5 g/dL (2-4); Glucose 190 mg/dL (70-100); Potassium 3.6 mmol/L (3.5-5.0); Sodium 135 mmol/L (135-145); Total Protein 6.2 g/dL (6.4-8.9)
[2019-10-02 16:56] LABS: ABS Lymphocytes 0.7 10^3/ul (1.0-4.8); ABS Monocytes 0.9 10^3/ul (0-0.8); ABS Neutrophils 10.4 10^3/ul (1.5-7.7); Eosinophil % 0.4 %; Lymphocyte % 5.8 %
[2019-10-02 16:57] LABS: Influenza A Molecular Negative (Negative); Influenza B Molecular Negative (Negative)
[2019-10-02 17:06] LABS: Troponin I 0.09 ng/mL (<0.03)
[2019-10-02] MEDS ORDERED: Levofloxacin TAB* 250 MG PO ONE (17:33)
[2019-10-02 18:11] VITALS: BP 101/64
== END 2019-10-02 17:53 | disposition left against medical advice (07) ==
LOC: ED 14:34
DX: J18.9 Pneumonia, unspecified organism (principal); R06.02 Shortness of breath; E11.9 Type 2 diabetes mellitus without complications; I25.10 Atherosclerotic heart disease of native coronary artery without angina pectoris; I10 Essential (primary) hypertension; E78.5 Hyperlipidemia, unspecified; F17.210 Nicotine dependence, cigarettes, uncomplicated; Z85.810 Personal history of malignant neoplasm of tongue; Z86.79 Personal history of other diseases of the circulatory system; Z79.82 Long term (current) use of aspirin; Z79.899 Other long term (current) drug therapy; Z85.72 Personal history of non-Hodgkin lymphomas; Z20.828 Contact with and (suspected) exposure to other viral communicable diseases
CPT/HCPCS: 36415; 71045; 80053; 83605; 83880; 84484; 85025; 85060; 85610; 85730; 87040; 87635; 93005; 96360; 99285; A9270-GY; J0456; J0696; U0003

== ENCOUNTER 2021-01-14 12:24 | Inpatient (IN) ==
[2021-01-14 15:03] LABS: Hematocrit 32 % (42-52); Hemoglobin 10.4 g/dL (14.0-18.0); Red Blood Count 4.57 10^6 /uL (4.18-5.48); White Blood Count 5.2 10^3/uL (3.5-10.8)
[2021-01-14 15:04] LABS: Mean Platelet Volume 9.4 fL (7.4-10.4); Platelet Count 147 10^3/uL (150-450); Red Cell Distribution Width 18 % (10-15)
[2021-01-14 15:23] LABS: Troponin I 0.06 ng/mL (<0.03)
[2021-01-14 15:33] LABS: ALT 5 U/L (7-52); AST 11 U/L (13-39); Albumin 3.9 g/dL (3.2-5.2); Albumin/Globulin Ratio 2.1 (1-3); Alkaline Phosphatase 78 U/L (35-149); Anion Gap 8 mmol/L (2-11); Blood Urea Nitrogen 14 mg/dL (6-24); CO2 Carbon Dioxide 25 mmol/L (22-32); Calcium 9.1 mg/dL (8.6-10.3); Chloride 105 mmol/L (101-111); EGFR African American 79.6 (>60); EGFR Non-African American 65.8 (>60); Globulin 1.9 g/dL (2-4); Glucose 79 mg/dL (70-100); Potassium 3.2 mmol/L (3.5-5.0); Sodium 138 mmol/L (135-145); Total Protein 5.8 g/dL (6.4-8.9)
[2021-01-14 15:41] LABS: ABS Basophils 0.1 10^3/ul (0-0.2); ABS Eosinophils 0.1 10^3/ul (0-0.6); ABS Lymphocytes 0.7 10^3/ul (1.0-4.8); ABS Monocytes 0.7 10^3/ul (0-0.8); ABS Neutrophils 3.6 10^3/ul (1.5-7.7); Eosinophil % 2.2 %; Lymphocyte % 13.2 %; Mean Corpuscular HGB Conc 32 g/dL (31-36); Mean Corpuscular Hemoglobin 23 pg (27-31); Mean Corpuscular Volume 71 fL (80-94); Microcytosis 2+; Nucleated Red Blood Cells % 0.1
[2021-01-14 15:42] LABS: Acanthocytes 1+; Anisocytosis 2+; Hypochromasia 2+; Polychromasia 2+
[2021-01-14] MEDS ORDERED: Potassium Chlor 20 meq TAB.ER PO ONE (15:45)
[2021-01-14] MEDS ORDERED: Furosemide 40 mg/4 ml IV VIAL IV ONE (15:45)
[2021-01-14] MEDS ORDERED: Nicotine PATCH 14 MG/24 HR PATCH TRANSDERM ONE (16:17)
[2021-01-14] MEDS ORDERED: Enoxaparin 40 MG/0.4 ML SYR SUBCUT SCH (21:00)
[2021-01-14 21:44] LABS: Troponin I 0.07 ng/mL (<0.03)
[2021-01-15 04:56] LABS: Calcium 9.1 mg/dL (8.6-10.3); EGFR African American 74.2 (>60); EGFR Non-African American 61.3 (>60); HDL Cholesterol 33.6 mg/dL; Potassium 3.4 mmol/L (3.5-5.0)
[2021-01-15 05:17] LABS: ABS Basophils 0.1 10^3/ul (0-0.2); ABS Eosinophils 0.1 10^3/ul (0-0.6); ABS Lymphocytes 0.7 10^3/ul (1.0-4.8); ABS Monocytes 0.7 10^3/ul (0-0.8); ABS Neutrophils 3.4 10^3/ul (1.5-7.7); Eosinophil % 2.2 %; Hematocrit 33 % (42-52); Hemoglobin 10.3 g/dL (14.0-18.0); Lymphocyte % 13.8 %; Mean Corpuscular HGB Conc 32 g/dL (31-36); Mean Corpuscular Hemoglobin 23 pg (27-31); Mean Corpuscular Volume 72 fL (80-94); Mean Platelet Volume 9.4 fL (7.4-10.4); Platelet Count 147 10^3/uL (150-450); Red Blood Count 4.57 10^6 /uL (4.18-5.48); Red Cell Distribution Width 18 % (10-15)
[2021-01-15] MEDS ORDERED: Potassium Chlor 20 meq TAB.ER PO ONE (09:37)
[2021-01-15] MEDS ORDERED: VERAPAMIL 2.5 MG/ML 2 ML VIAL ** 5 mg/2 ml ONE (09:43)
[2021-01-15] MEDS ORDERED: Midazolam 5 mg/5 ml VIAL 1 mg/ml 5 ml VIAL (5 mg) ONE (09:43)
[2021-01-15] MEDS ORDERED: Heparin 1,000 UNIT/ML 10 ml (10,000 UNITS) CATHLAB/DIALYSIS ONE (09:43)
[2021-01-15] MEDS ORDERED: fentaNYL 100 mcg/2 ml 50 MCG/ML VIAL ONE (09:43)
[2021-01-15] MEDS ORDERED: nitroGLYCERIN DRIP 25,000 MCG/250 ML BTL ONE (09:44)
[2021-01-15] MEDS ORDERED: Iohexol 350 (CONTRAST) 200 ML MDV IV ONE (09:44)
[2021-01-15] MEDS ORDERED: Lidocaine 1% VIAL 10 MG/ML VIAL ONE (09:44)
[2021-01-15] MEDS ORDERED: Heparin 2 UNITS/ML 1000 mls 2,000 ML IV ONE (09:44)
[2021-01-15 09:51] LABS: Activated Partial Thrombo Time 35.1 seconds (26.0-38.0); INR 1.18 (0.86-1.15)
[2021-01-15 10:14] LABS: Magnesium 1.5 mg/dL (1.9-2.7)
[2021-01-15] MEDS ORDERED: NS 0.9% 1000 ml BAG 1,000 ML IV SCH (11:00)
[2021-01-15 12:05] VITALS: BP 117/80
== END 2021-01-15 15:00 | disposition left against medical advice (07) | DRG 192 ==
LOC: ED 12:24 → MEDTELE 17:51
PROVIDERS: ADMIT Student in an Organized Health Care Education/Training Program; ATTEND Internal Medicine

== ENCOUNTER 2022-05-01 07:38 | Inpatient (IN) ==
[2022-05-01] MEDS ORDERED: Lactated Ringers SEPSIS* BAG 2,180 ML IV ONE (07:49)
[2022-05-01] MEDS ORDERED: Ondansetron 4 mg VIAL 2 MG/ML 2 ml VIAL IV ONE (09:05)
[2022-05-01 09:19] LABS: Hematocrit 34 % (42-52); Mean Corpuscular HGB Conc 33 g/dL (31-36); Mean Corpuscular Hemoglobin 30 pg (27-31); Mean Corpuscular Volume 91 fL (80-94); Mean Platelet Volume 8.1 fL (7.4-10.4); Platelet Count 275 10^3/uL (150-450); Red Blood Count 3.71 10^6 /uL (4.18-5.48); Red Cell Distribution Width 16 % (10-15); White Blood Count 12.2 10^3/uL (3.5-10.8)
[2022-05-01] MEDS ORDERED: Norepinephrine 16MCG/ML BAGD5W 4,000 MCG/250 ML BAG IV ONE (09:21)
[2022-05-01 09:31] LABS: Activated Partial Thrombo Time 31.9 seconds (26.0-38.0)
[2022-05-01 09:35] LABS: High Sens Troponin Baseline 62 pg/mL (<20)
[2022-05-01 09:38] LABS: Albumin 3.7 g/dL (3.2-5.2); Albumin/Globulin Ratio 1.5 (1-3); Alkaline Phosphatase 1080 U/L (35-149); Blood Urea Nitrogen 68 mg/dL (6-24); C Reactive Protein 31.59 mg/L (<8.01); CO2 Carbon Dioxide 28 mmol/L (22-32); Calcium 11.1 mg/dL (8.6-10.3); Chloride 90 mmol/L (101-111); Globulin 2.4 g/dL (2-4); Glucose 123 mg/dL (70-100); Sodium 133 mmol/L (135-145); Total Protein 6.1 g/dL (6.4-8.9); eGFR CKD-EPI 20.7 (>60)
[2022-05-01] MEDS ORDERED: Piperacillin/Tazobac ADVAN 3.375 GM in NS 0.9% 100 ml BAG 100 ML IV ONE (09:45)
[2022-05-01] MEDS ORDERED: Metoclopramide 5 MG/ML VIAL (10 mg) IV ONE (09:53)
[2022-05-01 09:55] LABS: ALT 3059 U/L (7-52)
[2022-05-01] MEDS ORDERED: Norepinephrine 16MCG/ML BAGD5W 4,000 MCG/250 ML BAG IV SCH (10:00)
[2022-05-01 10:03] LABS: Anion Gap 15 mmol/L (2-11)
[2022-05-01 10:25] LABS: High Sensitivity Troponin 1 Hr 73 pg/mL (<20)
[2022-05-01] MEDS ORDERED: Ondansetron 4 mg VIAL 2 MG/ML 2 ml VIAL IV PRN (10:55)
[2022-05-01] MEDS ORDERED: Morphine ORAL CONCENTRATE 5 MG/0.25 ML ORAL.SYRIN SL PRN (10:55)
[2022-05-01] MEDS ORDERED: Acetaminophen IV 1 GM/100ML 1,000 MG/100 ML BAG IV PRN (10:55)
[2022-05-01] MEDS ORDERED: Scopolamine 1 mg/72hr PATCH TRANSDERM SCH (11:00)
[2022-05-01] MEDS ORDERED: Furosemide 20 mg/2 ml IV VIAL ONE (11:05)
[2022-05-01] MEDS ORDERED: Furosemide 20 mg/2 ml IV VIAL IV ONE (11:10)
[2022-05-01 11:32] LABS: ABS Lymphocytes 0.4 10^3/ul (1.0-4.8); ABS Monocytes 1.4 10^3/ul (0-0.8); ABS Neutrophils 10.4 10^3/ul (1.5-7.7); Eosinophil % 0.1 %; Nucleated Red Blood Cells % 0.1
[2022-05-01 11:33] LABS: Potassium Redraw 5.3 mmol/L (3.5-5.0)
[2022-05-01] MEDS ORDERED: Morphine 2 MG/ML SYRINGE IV PRN (12:28)
[2022-05-01] MEDS ORDERED: Morphine 2 MG/ML SYRINGE ONE (12:33)
[2022-05-01 12:49] VITALS: BP 0/0
== END 2022-05-01 12:40 | disposition expired | DRG 862 ==
LOC: ED 07:38 → EDHOLD 10:56 → ICU 12:00
PROVIDERS: ADMIT Hospitalist; ATTEND Hospitalist